=== PATIENT | female | born 1950 | race Caucasian/White ===

== ENCOUNTER 2019-12-18 17:40 | Inpatient (IN) ==
[2019-12-18] MEDS ORDERED: IOPAMIDOL 100 ML BOTTLE IV ONE (17:41)
[2019-12-18 18:11] LABS: POC Blood Urea Nitrogen 5 mg/dl (8-23); POC CO2 24 mmol/L (22-30); POC Calcium, Ionized 1.14 mmol/L (1.16-1.32); POC Chloride 98 mmol/L (96-108); POC Creatinine 0.5 mg/dl (0.6-1.1); POC Glucose, Random 146 mg/dL (70-105); POC Potassium 3.1 mmol/L (3.3-5.1); POC Sodium 134 mmol/L (133-145)
[2019-12-18] MEDS ORDERED: 0.9 % SODIUM CHLORIDE 1,000 ML IV ONE (18:17)
[2019-12-18 19:08] LABS: ALT/SGPT 27 U/l (0-40); AST/SGOT 44 U/l (0-37); Albumin 3.4 gm/dL (3.2-5.2); Albumin/Globulin Ratio 0.9 (1.0-2.3); Alkaline Phosphatase 114 U/L (39-117); Bilirubin,Total 0.4 mg/dL (0.0-1.0); Calcium 9.1 mg/dl (8.6-10.4); Globulin 3.9 gm/dL (2.2-3.7); Glomerular Filtration Rate 92; Glucose 141 mg/dL (70-105)
[2019-12-18 19:10] LABS: Blood Urea Nitrogen 5 mg/dl (8-23); Carbon Dioxide 21 mmol/L (22-30); Chloride 95 mmol/L (96-108)
[2019-12-18 19:50] LABS: Basophils # (Auto) 0.02 K/mcL (0.00-0.30); Basophils % (Auto) 0.3 % (0.0-2.0); Eosinophils # (Auto) 0.04 K/mcL (0.00-0.70); Eosinophils % (Auto) 0.6 % (0.0-7.0); Hematocrit 39.2 % (34.1-44.9); Hemoglobin 12.7 g/dL (11.2-15.7); Lymphocytes # (Auto) 0.97 K/mcL (1.50-4.80); Lymphocytes % (Auto) 15.3 % (15.5-49.0); Mean Corpuscular HGB Conc 32.4 g/dL (31.0-36.0); Mean Platelet Volume 8.9 fL (7.4-10.4); Monocytes # (Auto) 0.62 K/mcL (0.10-0.90); Monocytes % (Auto) 9.8 % (1.0-12.0); Platelet Count 354 K/mcL (140-440); RBC 4.78 M/mcL (3.59-5.38); Red Cell Distribution Width 15.1 % (11.5-14.5); WBC 6.3 K/mcL (4.50-11.00)
[2019-12-18 19:54] LABS: Appearance,Urine CLEAR; Bacteria,Urine 0 /hpf (0); Bilirubin,Urine NEG (NEG); Color,Urine YELLOW; Culture Indicated,Urine NO; Glucose,Urine (UA) NEGATIVE (NEG); Ketones,Urine 20 mg/dL (NEG); Leukocyte Esterase,Urine NEG /uL (NEG); Mucus,Urine FEW /hpf (0); Nitrate,Urine NEG (NEG); Protein,Urine NEG (NEG); Specific Gravity,Urine 1.013 (1.000-1.035); Urine Blood 0.03 mg/dL (<0.03); Urine Hyaline Cast 2 /lpf (0-2); Urine RBC 4 /hpf (0-1); Urine Squamous Epithelial Cell 0 /hpf (0-4); Urine WBC 4 /hpf (0-4); Urobilinogen,Urine NEG (NEG)
--- NOTE | 2019-12-18 20:29 | Emergency Department Note ---
Abdominal Pain HPI - General Chief Complaint: Abdominal Pain Stated Complaint: abdominal pain Time Seen by Provider: 12/18/19 18:02 Source: patient Mode of arrival: ambulatory Limitations: no limitations - History of Present Illness HPI Narrative: 69-year-old female presents with abdominal pain, distention, bloating, and diarrhea for 2 months. Is progressively getting worse. Very shaky. Just does not feel right. So weak that she cannot do much of anything. She had some labs drawn a few weeks ago and her potassium was low and they give her some potassium. Daughter states she continues to get worse. No nausea or vomiting. Describes the pain is mild and tolerable just something is not right. States she does not take anything for pain other than Tylenol on rare occasion. States a few weeks ago they also tested her stool for cultures and C. difficile etc. and it was all negative. States it is only gotten worse since then. She states she has no control over her bowels at all and has constant diarrhea multiple times a day. They are concerned because the urine a half ago this is how she presented when she had severe diverticulitis and they removed 22 inches of bowel however she states at that time she did have more pain than she does now. Also states that she is so weak and tired she is just sleeping all the time and has no energy. - Related Data Home Medications Medication Instructions Recorded Confirmed Aspirin [Adult Low Dose Aspirin EC] 81 mg PO DAILY 01/01/18 12/18/19 Calcium Carbonate [Calcium] 500 mg PO DAILY 01/01/18 12/18/19 Cholecalciferol (Vitamin D3) 1,000 unit PO DAILY 01/01/18 12/18/19 [Vitamin D] Fexofenadine HCl [Aller-Fex] 180 mg PO DAILYP PRN 01/01/18 12/18/19 Multivit-Min/FA/Lycopen/Lutein 1 tab PO DAILY 01/01/18 12/18/19 [Centrum Silver Tablet] Vitamin B Complex [Super B-50 1 cap PO DAILY 01/01/18 12/18/19 Complex] True Calm 1 cap PO DAILY 05/04/18 12/18/19 Previous Rx's Medication Instructions Recorded dicyclomine 20 mg tablet 20 mg PO TID #90 tab 11/18/19 hydrocortisone 2.5 % topical cream 1 applic TOPICAL TID PRN #30 g 11/18/19 paroxetine HCl 20 mg tablet 20 mg PO QDAY #30 tab 12/02/19 Allergies Allergy/AdvReac Type Severity Reaction Status Date / Time hydrocodone AdvReac Severe Hallucinati Verified 12/18/19 17:42 ng oxycodone [Oxycodone] AdvReac Severe Hallucinati Verified 12/18/19 17:42 ng Review of Systems All systems ED: reviewed and negative except as stated. Abdominal Pain PMH - Past Medical History [facility] Narrative: Medical History (Last Reviewed 12/02/19 @ 11:06 by Ursula Crespo MD) Menopausal syndrome (Chronic) Hypertension, essential (Chronic) Hyperlipidemia (Chronic) Allergic rhinitis due to allergen (Chronic) Allergic rhinitis due to pollen (Chronic) Abdominal pain (Acute) History of flexible sigmoidoscopy (Acute) Past Surgical History (Last Reviewed 12/02/19 @ 11:06 by Ursula Crespo MD) History of colectomy (Acute) No pertinent past surgical history (Inactive) - Social History Smoking status: Never smoker Alcohol use: Reports: None Drug use: Reports: none Physical Exam Limitations: no limitations General appearance: alert, other (Tremors present) Head: atraumatic, normocephalic, normal inspection Eye: Present: normal appearance. Absent: conjunctival injection ENT: Present: mucous membranes moist Chest: Present: symmetric chest wall rise Respiratory: Present: normal lung sounds bilaterally. Absent: respiratory distress, rales/crackles, wheezes, accessory muscle use Cardiovascular: Present: regular rate, normal heart sounds Abdominal: Present: soft, distention (Mild diffuse distention), normal bowel sounds. Absent: tenderness (Cannot reproduce tenderness with palpation), guarding, rebound, mass Neurological: Present: alert, oriented X3 Psychiatric: Present: normal affect, normal mood Skin: Present: warm, dry, intact Course Course Narrative: CT scan shows inflammation of the bowel and possible colitis. I did speak with Dr. Crespo at 2030 who would like me to put orders in on this patient and admit her to observation. He would also like this patient on n.p.o. other than liq uids, placed on her routine medications, also placed on Solu-Medrol 60 mg IV every 12 hours, and stool cultures and C. difficile and pathology orders placed. The plan will be to scope her probably tomorrow. Patient is agreeable. He does not want any antibiotics at this time until other labs come back. Vital Signs Temperature 97.8 F 12/18/19 17:40 Pulse Rate 105 H 12/18/19 17:40 Respiratory Rate 18 12/18/19 17:40 Blood Pressure 141/89 12/18/19 17:40 Pulse Oximetry (%) 98 12/18/19 17:40 Temperature 97.8 F 12/18/19 17:40 Pulse Rate 100 H 12/18/19 18:37 Respiratory Rate 20 12/18/19 18:37 Blood Pressure 152/93 12/18/19 18:37 Pulse Oximetry (%) 95 12/18/19 18:37 Abdominal Pain - Lab Data Lab results reviewed: Yes I reviewed the patient's lab results. Result diagrams: 12/18/19 17:52 12/18/19 17:52 Lab Results 12/18/19 12/18/19 12/18/19 Range/Units 17:52 17:52 17:52 WBC 6.3 (4.50-11.00) K/mcL RBC 4.78 (3.59-5.38) M/mcL Hgb 12.7 (11.2-15.7) g/dL Hct 39.2 (34.1-44.9) % POC Hct 41.0 (36.0-48.0) % MCV 82.0 (80.0-100.0) fL MCH 26.6 (26.0-34.0) pg MCHC 32.4 (31.0-36.0) g/dL RDW 15.1 H (11.5-14.5) % Plt Count 354 (140-440) K/mcL MPV 8.9 (7.4-10.4) fL Gran % 74.0 (38.0-78.0) % Lymph % (Auto) 15.3 L (15.5-49.0) % [place] % (Auto) 9.8 (1.0-12.0) % Eos % (Auto) 0.6 (0.0-7.0) % Baso % (Auto) 0.3 (0.0-2.0) % Gran # 4.69 (1.80-8.00) K/mcL Lymph # (Auto) 0.97 L (1.50-4.80) K/mcL [place] # (Auto) 0.62 (0.10-0.90) K/mcL Eos # (Auto) 0.04 (0.00-0.70) K/mcL Baso # (Auto) 0.02 (0.00-0.30) K/mcL POC Sodium 134 (133-145) mmol/L Sodium 133 (133-145) mmol/L POC Potassium 3.1 L (3.3-5.1) mmol/L Potassium 3.2 L (3.3-5.1) mmol/L POC Chloride 98 (96-108) mmol/L Chloride 95 L (96-108) mmol/L Carbon Dioxide 21 L (22-30) mmol/L POC Total CO2 24 (22-30) mmol/L Anion Gap 17.0 H (8-16) POC BUN 5 L (8-23) mg/dl BUN 5 L (8-23) mg/dl Creatinine 0.6 (0.6-1.1) mg/dl POC Creatinine 0.5 L (0.6-1.1) mg/dl GFR Calculation 92 Glucose 141 H (70-105) mg/dL POC Glucose 146 H (70-105) mg/dL Calcium 9.1 (8.6-10.4) mg/dl POC WB Ioniz Calcium 1.14 L (1.16-1.32) mmol/L Total Bilirubin 0.4 (0.0-1.0) mg/dL AST 44 H (0-37) U/l ALT 27 (0-40) U/l Alkaline Phosphatase 114 (39-117) U/L Total Protein 7.3 (5.9-8.4) gm/dL Albumin 3.4 (3.2-5.2) gm/dL Globulin 3.9 H (2.2-3.7) gm/dL Albumin/Globulin Ratio 0.9 L (1.0-2.3) Lipase 40 (7-60) U/L Urine Color Urine Appearance Urine pH (5.0-9.0) Ur Specific Blair (1.000-1.035) Urine Protein (NEG) mg/dL Urine Glucose (UA) (NEG) mg/dL Urine Ketones (NEG) mg/dL Urine Occult Blood (<0.03) mg/dL Urine Nitrate (NEG) Urine Bilirubin (NEG) mg/dL Urine Urobilinogen (NEG) mg/dL Ur Leukocyte Esterase (NEG) /uL Urine RBC (0-1) /hpf Urine WBC (0-4) /hpf Ur Squamous Epith Cells (0-4) /hpf Urine Bacteria (0) /hpf Hyaline Casts (0-2) /lpf Urine Mucus (0) /hpf Ur Culture Indicated? 12/18/19 Range/Units 18:30 WBC (4.50-11.00) K/mcL RBC (3.59-5.38) M/mcL Hgb (11.2-15.7) g/dL Hct (34.1-44.9) % POC Hct (36.0-48.0) % MCV (80.0-100.0) fL MCH (26.0-34.0) pg MCHC (31.0-36.0) g/dL RDW (11.5-14.5) % Plt Count (140-440) K/mcL MPV (7.4-10.4) fL Gran % (38.0-78.0) % Lymph % (Auto) (15.5-49.0) % [place] % (Auto) (1.0-12.0) % Eos % (Auto) (0.0-7.0) % Baso % (Auto) (0.0-2.0) % Gran # (1.80-8.00) K/mcL Lymph # (Auto) (1.50-4.80) K/mcL [place] # (Auto) (0.10-0.90) K/mcL Eos # (Auto) (0.00-0.70) K/mcL Baso # (Auto) (0.00-0.30) K/mcL POC Sodium (133-145) mmol/L Sodium (133-145) mmol/L POC Potassium (3.3-5.1) mmol/L Potassium (3.3-5.1) mmol/L POC Chloride (96-108) mmol/L Chloride (96-108) mmol/L Carbon Dioxide (22-30) mmol/L POC Total CO2 (22-30) mmol/L Anion Gap (8-16) POC BUN (8-23) mg/dl BUN (8-23) mg/dl Creatinine (0.6-1.1) mg/dl POC Creatinine (0.6-1.1) mg/dl GFR Calculation Glucose (70-105) mg/dL POC Glucose (70-105) mg/dL Calcium (8.6-10.4) mg/dl POC WB Ioniz Calcium (1.16-1.32) mmol/L Total Bilirubin (0.0-1.0) mg/dL AST (0-37) U/l ALT (0-40) U/l Alkaline Phosphatase (39-117) U/L Total Protein (5.9-8.4) gm/dL Albumin (3.2-5.2) gm/dL Globulin (2.2-3.7) gm/dL Albumin/Globulin Ratio (1.0-2.3) Lipase (7-60) U/L Urine Color Yellow Urine Appearance Clear Urine pH 6.0 (5.0-9.0) Ur Specific Blair 1.013 (1.000-1.035) Urine Protein Neg (NEG) mg/dL Urine Glucose (UA) Negative (NEG) mg/dL Urine Ketones 20 A (NEG) mg/dL Urine Occult Blood 0.03 A (<0.03) mg/dL Urine Nitrate Neg (NEG) Urine Bilirubin Neg (NEG) mg/dL Urine Urobilinogen Neg (NEG) mg/dL Ur Leukocyte Esterase Neg (NEG) /uL Urine RBC 4 H (0-1) /hpf Urine WBC 4 (0-4) /hpf Ur Squamous Epith Cells 0 (0-4) /hpf Urine Bacteria 0 (0) /hpf Hyaline Casts 2 (0-2) /lpf Urine Mucus Few (0) /hpf Ur Culture Indicated? No - Radiology Data Radiology results reviewed: Yes I reviewed the patient's radiology results. Disposition Pt seen by [employer] WORK[employer]/PA only: Yes Clinical Impression: Colitis Disposition: Xfer As Outpt/Obs ([facility]) Condition: Fair Referrals: Teddy Coleman MD [Primary Care Provider] - Time of Disposition: 20:30
[2019-12-18] MEDS ORDERED: ONDANSETRON 4 MG/2 ML VIAL IV PRN (20:34)
[2019-12-18] MEDS ORDERED: HYDROmorphone 1 MG/ML SYRINGE IV PRN (20:34)
[2019-12-18] MEDS ORDERED: ACETAMINOPHEN 650 MG/65 ML BOTTLE IV PRN (20:34)
[2019-12-18] MEDS ORDERED: POTASSIUM CHLORIDE 20 MEQ in DEXTROSE 5% IN WATER 250 ML IV ONE (20:36)
[2019-12-18] MEDS ORDERED: FEXOFENADINE 180 MG TABLET PO PRN (20:37)
[2019-12-18] MEDS ORDERED: POTASSIUM CHLORIDE 20 MEQ/10 ML VIAL IV ONE (21:20)
[2019-12-18] MEDS: 0.9 % SODIUM CHLORIDE 1,000 ML IV SCH (21:32)
[2019-12-18] MEDS: DICYCLOMINE 20 MG TABLET PO SCH (22:41)
[2019-12-18] MEDS: methylPREDNISolone SOD SUCC 40 MG/ML VIAL IV SCH (22:45)
[2019-12-19] MEDS: 0.9 % SODIUM CHLORIDE 1,000 ML IV SCH ×4 (07:03→23:49)
--- NOTE | 2019-12-19 07:50 | Cat Scan Report ---
History: Abdominal pain, diarrhea and prior partial colectomy for diverticulitis TECHNIQUE: The patient was imaged following intravenous but no oral contrast scanning during the portal venous phase and delayed excretory phase. Sagittal and coronal reformats were created. The radiation exposure was limited using dose reduction technology. FINDINGS: Small hiatus hernia is present. In the left lobe of the liver a 1.7 cm cyst is present. A smaller cyst is present in the right lobe. There is moderate dilatation of both intra and extrahepatic bile ducts. The gallbladder has been removed. Common bile duct measures up to 1.4 cm. The bile ducts have enlarged since the time the prior CT done on 05/19/18. At that time the common bile duct measured 8 mm. No stone or mass are seen in the distal common bile duct. The pancreas appears normal without evidence of a mass or inflammation. The spleen is normal in size and homogeneous. There is a 1.3 cm accessory spleen medial to the lower pole. The pancreas is normal. The adrenals are normal. There are couple simple cysts in both kidneys. The largest is located posteriorly in the left kidney and measures 2.1 cm. Mild hydronephrosis is present in the right kidney. However, the delayed images show symmetric excretion of contrast from both kidneys into the renal pelvis and ureters. There are no stones in either kidney. The right ureter is larger than the left but not abnormally dilated. No abnormality is seen at the ureterovesical junction. The urinary bladder is distended and appears normal without evidence of a mass or thickened wall. Moderate atherosclerotic disease is present throughout the aorta and iliac arteries. The aorta is normal in caliber. There is inflammation of the sigmoid colon with thickened sousa and stranding of surrounding fat. At the level of the greatest inflammation there are surgical sutures following the prior partial colectomy. There are relatively few diverticula in the region of the inflammation. In the proximal descending colon near the splenic flexure there is a region of relatively thickened colonic wall with no surrounding inflammation and no diverticula. This is nonspecific. No bowel obstruction is present. There are multiple nondilated fluid-filled loops of small intestine. The appendix is noninflamed. Uterus and ovaries are atrophic. No ascites or adenopathy are present. There is a ventral hernia in the midline of the lower pelvis containing a segment of nonobstructed small bowel. The hernia measures 2.5 x 6.6 cm. This has developed since the prior CT done on 05/19/18. IMPRESSION: Recurrent diverticulitis in the sigmoid colon without evidence of perforation or abscess Increasing dilatation of the intra and extrahepatic bile ducts. This could be a reservoir effect following a prior cholecystectomy or a stricture at the ampulla Mild hydronephrosis in the right kidney with no obstructing lesion identified Ventral hernia in the pelvis containing small bowel Nonspecific narrowing of the lumen of the proximal descending colon which could be muscular contraction, inflammation and less likely neoplasm. Interpreted and Authenticated by: Wilmer Donato 12/19/19
[2019-12-19] MEDS: ASPIRIN 81 MG TAB.CHEW CHEWED SCH (09:50)
[2019-12-19] MEDS: DICYCLOMINE 20 MG TABLET PO SCH ×3 (09:51→21:23)
[2019-12-19] MEDS: VITAMIN D3 1,000 UNIT TABLET PO SCH (09:51)
[2019-12-19] MEDS: CALCIUM CARBONATE 500 MG TAB.CHEW CHEWED SCH (09:51)
[2019-12-19] MEDS: VITAMIN B COMPLEX 1 CAPSULE PO SCH (09:51)
[2019-12-19] MEDS: MULTIVITAMINS,THERAPEUTIC 1 ML ORAL.SOL PO SCH (09:51)
[2019-12-19] MEDS: methylPREDNISolone SOD SUCC 40 MG/ML VIAL IV SCH ×2 (10:39→21:23)
[2019-12-19] MEDS: PARoxetine 20 MG TABLET PO SCH (10:39)
[2019-12-19] MEDS: PIPERACILLIN SODIUM/TAZOBACTAM 3.375 GM in DEXTROSE 5% IN WATER 50 ML IV SCH ×3 (10:40→23:47)
--- NOTE | 2019-12-19 15:58 | General Surg History&Physical ---
History of Present Illness Patient information: Note initiated : 12/19/19 at 3:53 pm Service Date, if different from initiated Date: [] Patient: Jesusita Jeffers 69 y/o F admitted on 12/18/19 for abdominal pain. Chief Complaint: [] HPI: Ms. Jeffers is a 69 year old F admitted with uncontrolled diarrhea weakness fatigue and weight loss. The patient states that she has a two-month history of intermittent diarrhea. She has 10-12 diarrheal bowel movements per day. This is been increasing over the past 9 days. She denies any nausea or pain. She denies any fever or chills. She has lost her appetite. Her fecal leukocytes were positive but C. difficile was negative. Stool for pathogenic bacteria has not returned as yet. CT shows inflammation in the region of her previous sigmoid resection with the symptom mostly mucosal changes. She also has another area in the descending colon. Her white blood count is 6.3, hemoglobin 12.7, hematocrit 39.2, potassium 3.1, BUN 5, creatinine 0.5, sedimentation rate 72. Review of Systems - Constitutional fatigue, lethargy, malaise, weakness, weight loss - EENT Nose, mouth and throat: dizziness - Cardiovascular no chest pain, no dyspnea, no edema, no palpatations, no syncope - Respiratory no cough, no dyspnea on exertion, no wheezing, no chest congestion - Gastrointestinal bloating, change in bowel habits, change in stool character, cramping, diarrhea, fecal incontinence, loose stools, vomiting, no nausea - Genitourinary Genitourinary: no nocturia - Musculoskeletal no arthralgias, no back pain, no muscle cramps, no numbness, no stiffness - Integumentary no new lesions, no pruritus, no rash - Neurological weakness, no abnormal gait, no confusion, no headache(s), no syncope, no tremor(s) - Psychiatric anxiety, depression - Endocrine fatigue, no palpitations - Hematologic/Lymphatic as per HPI (is related), no easy bleeding, no easy bruising, no lymphadenopathy ( to sedimentation rate are) - Allergic/Immunologic no tongue swelling, no throat swelling, no uticaria, no wheezing, no lip swelling ( exited the gallbladder is going down) Past History Past medical history: Prior history of diverticulitis Essential hypertension Past surgical history: Segmental colectomy for diverticulitis 2017 Past family history: Coronary artery disease Hypertension Diabetes mellitus Parkinson's disease Breast cancer Past social history: Employed never smoker Medications and Allergies Home Medications Medication Instructions Recorded Confirmed Type Aspirin [Adult Low Dose Aspirin EC] 81 mg PO DAILY 01/01/18 12/18/19 History Cholecalciferol (Vitamin D3) 1,000 unit PO DAILY 01/01/18 12/18/19 History [Vitamin D] Multivit-Min/FA/Lycopen/Lutein 1 tab PO DAILY 01/01/18 12/18/19 History [Centrum Silver Tablet] Vitamin B Complex [Super B-50 1 cap PO DAILY 01/01/18 12/18/19 History Complex] True Calm 1 cap PO DAILY 05/04/18 12/18/19 History hydrocortisone 2.5 % topical cream 1 applic TOPICAL TID PRN #30 g 11/18/19 12/18/19 Rx paroxetine HCl 20 mg tablet 20 mg PO QDAY #30 tab 12/02/19 12/18/19 Rx Allergies Allergy/AdvReac Type Severity Reaction Status Date / Time hydrocodone AdvReac Mild Hallucinati Verified 12/19/19 09:55 ng hydromorphone AdvReac Mild Hallucinati Verified 12/19/19 09:55 ng oxycodone [Oxycodone] AdvReac Mild Hallucinati Verified 12/19/19 09:55 ng Exam Temp Pulse Resp BP Pulse Ox 98.1 F 79 12 138/84 95 12/19/19 12:00 12/19/19 12:00 12/19/19 12:00 12/19/19 12:00 12/19/19 12:00 - General physical appearance well developed, well nourished, no distress, no pain - Eyes PERRL, normal ocular movement - ENT normal pinna, normal nares, normal mucosa, no hearing loss, no congestion - Head Head exam IM: Present: atraumatic, normocephalic - Neck no masses, no bruits, trachea midline, no lymphadenopathy, no venous distension - Cardiovascular Cardiovascular exam IM: Present: normal rate and rhythm - Respiratory normal expansion, normal respiratory effort, clear to auscultation - Abdomen Abdomen: Present: soft, non tender (abdomen is nontender; she has active bowel sounds; there is no mass and no guarding), bowel sounds Hernia: Present: none - Genitourinary Present: normal external genitalia - Rectum Rectum: Present: normal sphincter tone, no tenderness, no masses, no bleeding, other (enlarged external hemorrhoid with healing fissure) - Integumentary Present: no rash, no growths, no abnormal pigmentation - Neurologic Present: normal coordination, normal sensation - Musculoskeletal Present: normal gait, normal posture - Psychiatric Present: oriented to time, oriented to person, oriented to place, speech is normal, memory intact Assessment and Plan (1) Acute on chronic colitis Wait for follow-up of stool cultures for pathogenic organisms Start Solu-Medrol every 6 12 hours Cover with Zosyn pending cultures Delay advancing diet Status: Acute (2) History of diverticulitis Clinically patient does not have evidence of recurrent diverticulitis Status: Acute Comment: Possible irritable bowel syndrome (3) Hypertension, essential Status: Chronic
[2019-12-19] MEDS ORDERED: HYDROCORTISONE CRM 2.5% TUBE 30GM TOPICAL PRN (16:17)
[2019-12-19] MEDS: HYDROCORTISONE CRM 2.5% TUBE 30GM TOPICAL PRN (23:50)
[2019-12-20] MEDS: PIPERACILLIN SODIUM/TAZOBACTAM 3.375 GM in DEXTROSE 5% IN WATER 50 ML IV SCH ×3 (05:54→18:19)
[2019-12-20] MEDS: HYDROCORTISONE CRM 2.5% TUBE 30GM TOPICAL PRN ×3 (05:55→21:40)
[2019-12-20] MEDS: 0.9 % SODIUM CHLORIDE 1,000 ML IV SCH ×2 (05:55→13:17)
[2019-12-20 06:51] LABS: Basophils # (Auto) 0.01 K/mcL (0.00-0.30); Basophils % (Auto) 0.2 % (0.0-2.0); Eosinophils # (Auto) 0 K/mcL (0.00-0.70); Eosinophils % (Auto) 0 % (0.0-7.0); Granulocytes % (Auto) 81.7 % (38.0-78.0); Hematocrit 35.8 % (34.1-44.9); Hemoglobin 11.4 g/dL (11.2-15.7); Lymphocytes # (Auto) 0.54 K/mcL (1.50-4.80); Lymphocytes % (Auto) 10.1 % (15.5-49.0); Mean Cell Volume 82.5 fL (80.0-100.0); Mean Corpuscular HGB Conc 31.8 g/dL (31.0-36.0); Mean Platelet Volume 8.8 fL (7.4-10.4); Monocytes # (Auto) 0.43 K/mcL (0.10-0.90); Platelet Count 332 K/mcL (140-440); RBC 4.34 M/mcL (3.59-5.38); Red Cell Distribution Width 15.2 % (11.5-14.5); WBC 5.4 K/mcL (4.50-11.00)
[2019-12-20 08:17] LABS: ALT/SGPT 15 U/l (0-40); AST/SGOT 12 U/l (0-37); Albumin 2.8 gm/dL (3.2-5.2); Albumin/Globulin Ratio 0.8 (1.0-2.3); Alkaline Phosphatase 77 U/L (39-117); Bilirubin,Direct < 0.2 mg/dL (0.0-0.3); Bilirubin,Total 0.3 mg/dL (0.0-1.0); Blood Urea Nitrogen 4 mg/dl (8-23); Calcium 8.2 mg/dl (8.6-10.4); Carbon Dioxide 22 mmol/L (22-30); Chloride 102 mmol/L (96-108); Globulin 3.3 gm/dL (2.2-3.7); Glomerular Filtration Rate 98; Glucose 137 mg/dL (70-105); Lactate Dehydrogenase 133 U/L (94-250); Phosphorous 2.5 mg/dL (2.7-4.5); Triglycerides 80 mg/dl (<150); Uric Acid 1.4 mg/dL (2.5-8.0)
[2019-12-20] MEDS: PARoxetine 20 MG TABLET PO SCH ×2 (09:27→09:31)
[2019-12-20] MEDS: DICYCLOMINE 20 MG TABLET PO SCH ×3 (09:27→21:40)
[2019-12-20] MEDS: methylPREDNISolone SOD SUCC 40 MG/ML VIAL IV SCH ×2 (09:27→21:39)
[2019-12-20] MEDS: ASPIRIN 81 MG TAB.CHEW CHEWED SCH (09:27)
[2019-12-20] MEDS: CALCIUM CARBONATE 500 MG TAB.CHEW CHEWED SCH (09:27)
[2019-12-20] MEDS: VITAMIN B COMPLEX 1 CAPSULE PO SCH (09:27)
[2019-12-20] MEDS: VITAMIN D3 1,000 UNIT TABLET PO SCH (09:27)
[2019-12-20] MEDS: MULTIVITAMINS,THERAPEUTIC 1 ML ORAL.SOL PO SCH (09:31)
[2019-12-20] MEDS: MAGNESIUM SULFATE 4 GM/100 ML BAG IV SCH ×2 (12:14→18:54)
--- NOTE | 2019-12-20 14:05 | General Surgery Progress Note ---
Subjective Patient reports: feels better, pain is less, tolerating liquids well, flatus, bowel movement, afebrile Narrative: Note initiated : 12/20/19 at 2:02 pm Service Date, if different from initiated Date: [] Patient: Jesusita Jeffers 69 y/o F admitted on 12/18/19 for abdominal pain. Chief Complaint: [Patient states that she feels better. She has been afebrile. She denies nausea. Her bowel movements are less frequent and more formed than on admission. White blood count 5.9, hemoglobin 11.4, hematocrit 35.8, se dimentation rate 72, potassium 2.9, BUN 4, creatinine 0.5, phosphorus 2.5, magnesium 1.6.] Objective Temp Pulse Resp BP Pulse Ox 97.8 F 69 16 139/85 96 12/20/19 11:39 12/20/19 11:39 12/20/19 11:39 12/20/19 11:39 12/20/19 11:39 - Additional Data Intake & Output - Last 24 hours: Intake & Output 12/18/19 12/19/19 12/20/19 12/21/19 05:59 05:59 05:59 05:59 Intake Total 2360 3825 100 Output Total 727 3251 900 Balance 1633 574 -800 Weight 130 lb 14.4 oz 132 lb 11.2 oz - General physical appearance well developed, well nourished, no distress, moderate pain - Eyes PERRL, normal ocular movement - ENT normal pinna, normal nares, normal mucosa, no hearing loss, no congestion - Neck no masses, no bruits, trachea midline, no lymphadenopathy, no venous distension - Respiratory normal expansion, normal respiratory effort, clear to auscultation - Cardiovascular Cardiovascular exam: Present: normal rate and rhythm, RRR, +S1, +S2 (IVs). Absent: JVD, tachycardia - Abdomen non tender (no tenderness noted), bowel sounds (present), surgical scars (none), masses (none) - Integumentary no rash, no growths, no abnormal pigmentation - Neurologic normal coordination, normal sensation - Musculoskeletal normal gait, normal posture - Psychiatric oriented to time, oriented to person, oriented to place, speech is normal, memory intact - Labs 12/20/19 05:20 12/20/19 05:20 Diabetes panel 12/20/19 Range/Units 05:20 Sodium 139 (133-145) mmol/L Potassium 2.9 L* (3.3-5.1) mmol/L Chloride 102 (96-108) mmol/L Carbon Dioxide 22 (22-30) mmol/L BUN 4 L (8-23) mg/dl Creatinine 0.5 L (0.6-1.1) mg/dl Glucose 137 H (70-105) mg/dL Calcium 8.2 L (8.6-10.4) mg/dl AST 12 (0-37) U/l ALT 15 (0-40) U/l Alkaline Phosphatase 77 (39-117) U/L Total Protein 6.1 (5.9-8.4) gm/dL Albumin 2.8 L (3.2-5.2) gm/dL Triglycerides 80 (<150) mg/dl Calcium panel 12/20/19 Range/Units 05:20 Calcium 8.2 L (8.6-10.4) mg/dl Phosphorus 2.5 L (2.7-4.5) mg/dL Albumin 2.8 L (3.2-5.2) gm/dL Pituitary panel 12/20/19 Range/Units 05:20 Sodium 139 (133-145) mmol/L Potassium 2.9 L* (3.3-5.1) mmol/L Chloride 102 (96-108) mmol/L Carbon Dioxide 22 (22-30) mmol/L BUN 4 L (8-23) mg/dl Creatinine 0.5 L (0.6-1.1) mg/dl Glucose 137 H (70-105) mg/dL Calcium 8.2 L (8.6-10.4) mg/dl Adrenal panel 12/20/19 Range/Units 05:20 Sodium 139 (133-145) mmol/L Potassium 2.9 L* (3.3-5.1) mmol/L Chloride 102 (96-108) mmol/L Carbon Dioxide 22 (22-30) mmol/L BUN 4 L (8-23) mg/dl Creatinine 0.5 L (0.6-1.1) mg/dl Glucose 137 H (70-105) mg/dL Calcium 8.2 L (8.6-10.4) mg/dl Total Bilirubin 0.3 (0.0-1.0) mg/dL AST 12 (0-37) U/l ALT 15 (0-40) U/l Alkaline Phosphatase 77 (39-117) U/L Total Protein 6.1 (5.9-8.4) gm/dL Albumin 2.8 L (3.2-5.2) gm/dL Assessment and Plan (1) Acute on chronic colitis Status: Acute Assessment and plan: Patient is clinically improved. Will continue on steroids and antibiotics. Diet will be advanced to full liquids Current Visit: Yes (2) History of diverticulitis Problem details: Possible irritable bowel syndrome Status: Acute Current Visit: No (3) Hypertension, essential Status: Chronic Current Visit: No - Time Spent With Patient Total time spent is greater than 50% in coordination of care (as documented) at patient's floor/unit and/or counseling patient:
[2019-12-20] MEDS: POTASSIUM PHOSPHATE 40 MEQ in DEXTROSE 5% IN WATER 500 ML IV SCH (14:14)
[2019-12-21] MEDS: PIPERACILLIN SODIUM/TAZOBACTAM 3.375 GM in DEXTROSE 5% IN WATER 50 ML IV SCH ×5 (00:06→23:44)
[2019-12-21] MEDS: POTASSIUM PHOSPHATE 40 MEQ in DEXTROSE 5% IN WATER 500 ML IV SCH ×3 (01:30→19:31)
[2019-12-21] MEDS: 0.9 % SODIUM CHLORIDE 1,000 ML IV SCH ×6 (01:30→23:53)
[2019-12-21 06:21] LABS: Basophils # (Auto) 0.01 K/mcL (0.00-0.30); Basophils % (Auto) 0.2 % (0.0-2.0); Eosinophils # (Auto) 0 K/mcL (0.00-0.70); Eosinophils % (Auto) 0 % (0.0-7.0); Granulocytes % (Auto) 79.7 % (38.0-78.0); Hematocrit 36.4 % (34.1-44.9); Hemoglobin 11.8 g/dL (11.2-15.7); Lymphocytes # (Auto) 0.48 K/mcL (1.50-4.80); Lymphocytes % (Auto) 11.5 % (15.5-49.0); Mean Cell Volume 80.7 fL (80.0-100.0); Mean Corpuscular HGB Conc 32.4 g/dL (31.0-36.0); Mean Platelet Volume 8.7 fL (7.4-10.4); Monocytes # (Auto) 0.36 K/mcL (0.10-0.90); Monocytes % (Auto) 8.6 % (1.0-12.0); Platelet Count 359 K/mcL (140-440); RBC 4.51 M/mcL (3.59-5.38); Red Cell Distribution Width 15.3 % (11.5-14.5); WBC 4.2 K/mcL (4.50-11.00)
[2019-12-21 06:56] LABS: ALT/SGPT 18 U/l (0-40); AST/SGOT 12 U/l (0-37); Albumin 2.8 gm/dL (3.2-5.2); Albumin/Globulin Ratio 0.8 (1.0-2.3); Alkaline Phosphatase 72 U/L (39-117); Bilirubin,Direct < 0.2 mg/dL (0.0-0.3); Bilirubin,Total 0.2 mg/dL (0.0-1.0); Calcium 7.9 mg/dl (8.6-10.4); Carbon Dioxide 25 mmol/L (22-30); Chloride 103 mmol/L (96-108); Globulin 3.7 gm/dL (2.2-3.7); Glomerular Filtration Rate 92; Glucose 147 mg/dL (70-105); Lactate Dehydrogenase 114 U/L (94-250); Phosphorous 2.5 mg/dL (2.7-4.5); Triglycerides 93 mg/dl (<150)
[2019-12-21 06:58] LABS: Blood Urea Nitrogen 2 mg/dl (8-23); Uric Acid 1.1 mg/dL (2.5-8.0)
[2019-12-21] MEDS: VITAMIN B COMPLEX 1 CAPSULE PO SCH (08:22)
[2019-12-21] MEDS: CALCIUM CARBONATE 500 MG TAB.CHEW CHEWED SCH (08:22)
[2019-12-21] MEDS: PARoxetine 20 MG TABLET PO SCH ×2 (08:22→08:23)
[2019-12-21] MEDS: methylPREDNISolone SOD SUCC 40 MG/ML VIAL IV SCH ×2 (08:22→20:27)
[2019-12-21] MEDS: MULTIVITAMINS,THERAPEUTIC 1 ML ORAL.SOL PO SCH (08:23)
[2019-12-21] MEDS: ASPIRIN 81 MG TAB.CHEW CHEWED SCH (08:23)
[2019-12-21] MEDS: DICYCLOMINE 20 MG TABLET PO SCH ×3 (08:23→20:28)
[2019-12-21] MEDS: HYDROCORTISONE CRM 2.5% TUBE 30GM TOPICAL PRN (08:23)
[2019-12-21] MEDS: VITAMIN D3 1,000 UNIT TABLET PO SCH (08:23)
--- NOTE | 2019-12-21 13:59 | General Surgery Progress Note ---
Subjective Patient reports: feels better, pain is less, tolerating liquids well, flatus, bowel movement, afebrile Narrative: Note initiated : 12/21/19 at 1:57 pm Service Date, if different from initiated Date: [] Patient: Jesusita Jeffers 69 y/o F admitted on 12/20/19 for abdominal pain. Chief Complaint: [Patient is feeling better. Her numbers of stool if significantly decrease. They are more formed. He denies nausea. She is having no discomfort. White blood count 10, hemoglobin 12.9, hematocrit 37.9, potassium 3.8, BUN 8, creatinine 0.7.] Objective Temp Pulse Resp BP Pulse Ox 99.1 F H 69 16 131/83 96 12/21/19 11:56 12/21/19 11:56 12/21/19 11:56 12/21/19 11:56 12/21/19 11:56 - Additional Data Intake & Output - Last 24 hours: Intake & Output 12/19/19 12/20/19 12/21/19 12/22/19 05:59 05:59 05:59 05:59 Intake Total 2360 3825 2434.0909 1290 Output Total 727 3251 3675 Balance 1633 574 -1240.9091 1290 Weight 130 lb 14.4 oz 132 lb 11.2 oz 133 lb 1.6 oz - General physical appearance well developed, well nourished, no distress - Eyes PERRL, normal ocular movement - ENT normal pinna, normal nares, normal mucosa, no hearing loss, no congestion - Neck no masses, no bruits, trachea midline, no lymphadenopathy, no venous distension - Respiratory normal expansion, normal respiratory effort, clear to auscultation - Cardiovascular Cardiovascular exam: Present: normal rate and rhythm, RRR, +S1, +S2. Absent: JVD, tachycardia - Abdomen non tender (patient no longer has abdominal tenderness), bowel sounds (present), surgical scars (none), masses (none) - Integumentary no rash, no growths, no abnormal pigmentation - Neurologic normal coordination, normal sensation - Musculoskeletal normal gait, normal posture - Psychiatric oriented to time, oriented to person, oriented to place, speech is normal, memory intact - Labs 12/21/19 05:25 12/21/19 05:25 Diabetes panel 12/21/19 Range/Units 05:25 Sodium 139 (133-145) mmol/L Potassium 3.0 L (3.3-5.1) mmol/L Chloride 103 (96-108) mmol/L Carbon Dioxide 25 (22-30) mmol/L BUN 2 L (8-23) mg/dl Creatinine 0.6 (0.6-1.1) mg/dl Glucose 147 H (70-105) mg/dL Calcium 7.9 L (8.6-10.4) mg/dl AST 12 (0-37) U/l ALT 18 (0-40) U/l Alkaline Phosphatase 72 (39-117) U/L Total Protein 6.5 (5.9-8.4) gm/dL Albumin 2.8 L (3.2-5.2) gm/dL Triglycerides 93 (<150) mg/dl Calcium panel 12/21/19 Range/Units 05:25 Calcium 7.9 L (8.6-10.4) mg/dl Phosphorus 2.5 L (2.7-4.5) mg/dL Albumin 2.8 L (3.2-5.2) gm/dL Pituitary panel 12/21/19 Range/Units 05:25 Sodium 139 (133-145) mmol/L Potassium 3.0 L (3.3-5.1) mmol/L Chloride 103 (96-108) mmol/L Carbon Dioxide 25 (22-30) mmol/L BUN 2 L (8-23) mg/dl Creatinine 0.6 (0.6-1.1) mg/dl Glucose 147 H (70-105) mg/dL Calcium 7.9 L (8.6-10.4) mg/dl Adrenal panel 12/21/19 Range/Units 05:25 Sodium 139 (133-145) mmol/L Potassium 3.0 L (3.3-5.1) mmol/L Chloride 103 (96-108) mmol/L Carbon Dioxide 25 (22-30) mmol/L BUN 2 L (8-23) mg/dl Creatinine 0.6 (0.6-1.1) mg/dl Glucose 147 H (70-105) mg/dL Calcium 7.9 L (8.6-10.4) mg/dl Total Bilirubin 0.2 (0.0-1.0) mg/dL AST 12 (0-37) U/l ALT 18 (0-40) U/l Alkaline Phosphatase 72 (39-117) U/L Total Protein 6.5 (5.9-8.4) gm/dL Albumin 2.8 L (3.2-5.2) gm/dL Assessment and Plan (1) Acute on chronic colitis Status: Acute Assessment and plan: Patient is clinically improved. Will continue on steroids and antibiotics. Diet will be advanced to full liquids Current Visit: Yes (2) History of diverticulitis Problem details: Possible irritable bowel syndrome Status: Acute Current Visit: No (3) Hypertension, essential Status: Chronic Current Visit: No - Time Spent With Patient Total time spent is greater than 50% in coordination of care (as documented) at patient's floor/unit and/or counseling patient:
[2019-12-22] MEDS: 0.9 % SODIUM CHLORIDE 1,000 ML IV SCH ×5 (05:41→21:21)
[2019-12-22] MEDS: PIPERACILLIN SODIUM/TAZOBACTAM 3.375 GM in DEXTROSE 5% IN WATER 50 ML IV SCH ×3 (05:42→17:08)
[2019-12-22 06:16] LABS: Basophils # (Auto) 0.02 K/mcL (0.00-0.30); Basophils % (Auto) 0.5 % (0.0-2.0); Eosinophils # (Auto) 0 K/mcL (0.00-0.70); Eosinophils % (Auto) 0 % (0.0-7.0); Granulocytes % (Auto) 80.7 % (38.0-78.0); Hematocrit 35.4 % (34.1-44.9); Hemoglobin 11.3 g/dL (11.2-15.7); Lymphocytes # (Auto) 0.48 K/mcL (1.50-4.80); Lymphocytes % (Auto) 11.7 % (15.5-49.0); Mean Cell Volume 81.4 fL (80.0-100.0); Mean Corpuscular HGB Conc 31.9 g/dL (31.0-36.0); Mean Platelet Volume 8.7 fL (7.4-10.4); Monocytes # (Auto) 0.29 K/mcL (0.10-0.90); Monocytes % (Auto) 7.1 % (1.0-12.0); Platelet Count 358 K/mcL (140-440); RBC 4.35 M/mcL (3.59-5.38); Red Cell Distribution Width 15.3 % (11.5-14.5); WBC 4.1 K/mcL (4.50-11.00)
[2019-12-22 06:35] LABS: ALT/SGPT 17 U/l (0-40); AST/SGOT 13 U/l (0-37); Albumin 2.9 gm/dL (3.2-5.2); Albumin/Globulin Ratio 0.9 (1.0-2.3); Alkaline Phosphatase 64 U/L (39-117); Bilirubin,Direct < 0.2 mg/dL (0.0-0.3); Bilirubin,Total 0.2 mg/dL (0.0-1.0); Blood Urea Nitrogen 2 mg/dl (8-23); Calcium 8.2 mg/dl (8.6-10.4); Carbon Dioxide 25 mmol/L (22-30); Chloride 104 mmol/L (96-108); Globulin 3.2 gm/dL (2.2-3.7); Glomerular Filtration Rate 98; Glucose 142 mg/dL (70-105); Lactate Dehydrogenase 148 U/L (94-250); Phosphorous 2.9 mg/dL (2.7-4.5); Triglycerides 105 mg/dl (<150)
[2019-12-22] MEDS: CALCIUM CARBONATE 500 MG TAB.CHEW CHEWED SCH (08:23)
[2019-12-22] MEDS: PARoxetine 20 MG TABLET PO SCH ×2 (08:23)
[2019-12-22] MEDS: ASPIRIN 81 MG TAB.CHEW CHEWED SCH (08:24)
[2019-12-22] MEDS: MULTIVITAMINS,THERAPEUTIC 1 ML ORAL.SOL PO SCH (08:24)
[2019-12-22] MEDS: methylPREDNISolone SOD SUCC 40 MG/ML VIAL IV SCH ×2 (08:24→21:00)
[2019-12-22] MEDS: VITAMIN B COMPLEX 1 CAPSULE PO SCH (08:24)
[2019-12-22] MEDS: DICYCLOMINE 20 MG TABLET PO SCH ×3 (08:24→21:00)
[2019-12-22] MEDS: VITAMIN D3 1,000 UNIT TABLET PO SCH (08:24)
--- NOTE | 2019-12-22 16:35 | General Surgery Progress Note ---
Subjective Patient reports: feels better, pain is less, tolerating liquids well, flatus, bowel movement, afebrile Narrative: Note initiated : 12/22/19 at 4:33 pm Service Date, if different from initiated Date: [] Patient: Jesusita Jeffers 69 y/o F admitted on 12/20/19 for abdominal pain. Chief Complaint: [patient is significantly improved. She is no longer having diarrhea. She denies abdominal pain. Stool cultures have been negative so far. White blood count 4.1, hemoglobin 11.3, hematocrit 35.4, potassium 3.8, BUN 2, creatinine 0.5.] Objective Temp Pulse Resp BP Pulse Ox 98.3 F 68 18 122/78 96 12/22/19 16:00 12/22/19 16:00 12/22/19 16:00 12/22/19 16:00 12/22/19 16:00 - Additional Data Intake & Output - Last 24 hours: Intake & Output 12/20/19 12/21/19 12/22/19 12/23/19 05:59 05:59 05:59 05:59 Intake Total 3825 2434.0909 3858.0909 2300 Output Total 3251 3675 1775 3401 Balance 574 -1240.9091 2083.0909 -1101 Weight 132 lb 11.2 oz 133 lb 1.6 oz 135 lb 9.6 oz - General physical appearance well developed, well nourished, no distress - Eyes PERRL, normal ocular movement - ENT normal pinna, normal nares, normal mucosa, no hearing loss, no congestion - Neck no masses, no bruits, trachea midline, no lymphadenopathy, no venous distension - Respiratory normal expansion, normal respiratory effort, clear to auscultation - Cardiovascular Cardiovascular exam: Present: normal rate and rhythm, RRR, +S1, +S2. Absent: JVD, tachycardia - Abdomen non tender, bowel sounds (present), surgical scars (none), masses (none) - Integumentary no rash, no growths, no abnormal pigmentation - Neurologic normal coordination, normal sensation - Musculoskeletal normal gait, normal posture - Psychiatric oriented to time, oriented to person, oriented to place, speech is normal, memory intact - Labs 12/22/19 04:56 12/22/19 04:56 Diabetes panel 12/22/19 Range/Units 04:56 Sodium 141 (133-145) mmol/L Potassium 3.8 (3.3-5.1) mmol/L Chloride 104 (96-108) mmol/L Carbon Dioxide 25 (22-30) mmol/L BUN 2 L (8-23) mg/dl Creatinine 0.5 L (0.6-1.1) mg/dl Glucose 142 H (70-105) mg/dL Calcium 8.2 L (8.6-10.4) mg/dl AST 13 (0-37) U/l ALT 17 (0-40) U/l Alkaline Phosphatase 64 (39-117) U/L Total Protein 6.1 (5.9-8.4) gm/dL Albumin 2.9 L (3.2-5.2) gm/dL Triglycerides 105 (<150) mg/dl Calcium panel 12/22/19 Range/Units 04:56 Calcium 8.2 L (8.6-10.4) mg/dl Phosphorus 2.9 (2.7-4.5) mg/dL Albumin 2.9 L (3.2-5.2) gm/dL Pituitary panel 12/22/19 Range/Units 04:56 Sodium 141 (133-145) mmol/L Potassium 3.8 (3.3-5.1) mmol/L Chloride 104 (96-108) mmol/L Carbon Dioxide 25 (22-30) mmol/L BUN 2 L (8-23) mg/dl Creatinine 0.5 L (0.6-1.1) mg/dl Glucose 142 H (70-105) mg/dL Calcium 8.2 L (8.6-10.4) mg/dl Adrenal panel 12/22/19 Range/Units 04:56 Sodium 141 (133-145) mmol/L Potassium 3.8 (3.3-5.1) mmol/L Chloride 104 (96-108) mmol/L Carbon Dioxide 25 (22-30) mmol/L BUN 2 L (8-23) mg/dl Creatinine 0.5 L (0.6-1.1) mg/dl Glucose 142 H (70-105) mg/dL Calcium 8.2 L (8.6-10.4) mg/dl Total Bilirubin 0.2 (0.0-1.0) mg/dL AST 13 (0-37) U/l ALT 17 (0-40) U/l Alkaline Phosphatase 64 (39-117) U/L Total Protein 6.1 (5.9-8.4) gm/dL Albumin 2.9 L (3.2-5.2) gm/dL Assessment and Plan (1) Acute on chronic colitis Status: Acute Assessment and plan: Patient is clinically improved. Will continue on steroids and antibiotics. Diet will be advanced to full liquids Current Visit: Yes (2) History of diverticulitis Problem details: Possible irritable bowel syndrome Status: Acute Current Visit: No (3) Hypertension, essential Status: Chronic Current Visit: No - Time Spent With Patient Total time spent is greater than 50% in coordination of care (as documented) at patient's floor/unit and/or counseling patient:
[2019-12-22] MEDS ORDERED: 0.9 % SODIUM CHLORIDE 250 ML IV SCH (22:00)
[2019-12-22 23:31] LABS: Hematocrit 35.7 % (34.1-44.9); Hemoglobin 11.5 g/dL (11.2-15.7)
[2019-12-23] MEDS: PIPERACILLIN SODIUM/TAZOBACTAM 3.375 GM in DEXTROSE 5% IN WATER 50 ML IV SCH ×4 (00:13→17:04)
[2019-12-23] MEDS: 0.9 % SODIUM CHLORIDE 1,000 ML IV SCH ×4 (05:14→20:59)
[2019-12-23 08:13] LABS: Hematocrit 36.4 % (34.1-44.9); Hemoglobin 11.6 g/dL (11.2-15.7)
[2019-12-23] MEDS: methylPREDNISolone SOD SUCC 40 MG/ML VIAL IV SCH ×2 (08:26→20:52)
[2019-12-23 08:30] LABS: ALT/SGPT 16 U/l (0-40); AST/SGOT 10 U/l (0-37); Albumin 2.7 gm/dL (3.2-5.2); Albumin/Globulin Ratio 0.9 (1.0-2.3); Alkaline Phosphatase 58 U/L (39-117); Bilirubin,Direct < 0.2 mg/dL (0.0-0.3); Bilirubin,Total 0.2 mg/dL (0.0-1.0); Calcium 8.1 mg/dl (8.6-10.4); Carbon Dioxide 23 mmol/L (22-30); Chloride 103 mmol/L (96-108); Globulin 3.1 gm/dL (2.2-3.7); Glomerular Filtration Rate 106; Glucose 151 mg/dL (70-105); Lactate Dehydrogenase 134 U/L (94-250); Phosphorous 2.5 mg/dL (2.7-4.5); Triglycerides 104 mg/dl (<150)
[2019-12-23 08:32] LABS: Blood Urea Nitrogen 3 mg/dl (8-23)
[2019-12-23] MEDS: PARoxetine 20 MG TABLET PO SCH ×2 (08:40→08:41)
[2019-12-23] MEDS: ASPIRIN 81 MG TAB.CHEW CHEWED SCH (08:40)
[2019-12-23] MEDS: DICYCLOMINE 20 MG TABLET PO SCH ×4 (08:40→20:52)
[2019-12-23] MEDS: MULTIVITAMINS,THERAPEUTIC 1 ML ORAL.SOL PO SCH (08:41)
[2019-12-23] MEDS: VITAMIN B COMPLEX 1 CAPSULE PO SCH (08:41)
[2019-12-23] MEDS: VITAMIN D3 1,000 UNIT TABLET PO SCH (08:41)
[2019-12-23] MEDS: CALCIUM CARBONATE 500 MG TAB.CHEW CHEWED SCH (08:41)
[2019-12-23] MEDS ORDERED: POTASSIUM PHOSPHATE 40 MEQ in DEXTROSE 5% IN WATER 500 ML IV ONE (10:41)
--- NOTE | 2019-12-23 14:54 | General Surgery Progress Note ---
Subjective Patient reports: feels better, pain is less, tolerating liquids well, flatus, diarrhea, blood in stool, afebrile Narrative: Note initiated : 12/23/19 at 2:50 pm Service Date, if different from initiated Date: [] Patient: Jesusita Jeffers 69 y/o F admitted on 12/20/19 for abdominal pain. Chief Complaint: [patient states that she feels better. She does not have abdominal discomfort. She did have some bloody bowel movements last evening when her hemoglobin has remained stable over 12 hours. Potassium 3.4 BUN 30 creatinine 0.4 phosphorus 2.5 C. difficile is negative] Objective Temp Pulse Resp BP Pulse Ox 97.7 F 67 18 138/83 95 12/23/19 12:00 12/23/19 12:00 12/23/19 12:00 12/23/19 12:00 12/23/19 07:00 - Additional Data Intake & Output - Last 24 hours: Intake & Output 12/21/19 12/22/19 12/23/19 12/24/19 05:59 05:59 05:59 05:59 Intake Total 2434.0909 3858.0909 4400 100 Output Total 3675 1775 6301 375 Balance -1240.9091 2083.0909 -1901 -275 Weight 133 lb 1.6 oz 135 lb 9.6 oz 133 lb 9.6 oz - General physical appearance well developed, well nourished, no distress - Eyes PERRL, normal ocular movement - ENT normal pinna, normal nares, normal mucosa, no hearing loss, no congestion - Neck no masses, no bruits, trachea midline, no lymphadenopathy, no venous distension - Respiratory normal expansion, normal respiratory effort, clear to auscultation - Cardiovascular Cardiovascular exam: Present: normal rate and rhythm, RRR, +S1, +S2. Absent: JVD, tachycardia - Abdomen non tender, bowel sounds (present), surgical scars (none), masses (none) - Integumentary no rash, no growths, no abnormal pigmentation - Neurologic normal coordination, normal sensation - Musculoskeletal normal gait, normal posture - Psychiatric oriented to time, oriented to person, oriented to place, speech is normal, memory intact - Labs 12/23/19 05:58 12/23/19 05:58 Diabetes panel 12/23/19 Range/Units 05:58 Sodium 138 (133-145) mmol/L Potassium 3.4 (3.3-5.1) mmol/L Chloride 103 (96-108) mmol/L Carbon Dioxide 23 (22-30) mmol/L BUN 3 L (8-23) mg/dl Creatinine 0.4 L (0.6-1.1) mg/dl Glucose 151 H (70-105) mg/dL Calcium 8.1 L (8.6-10.4) mg/dl AST 10 (0-37) U/l ALT 16 (0-40) U/l Alkaline Phosphatase 58 (39-117) U/L Total Protein 5.8 L (5.9-8.4) gm/dL Albumin 2.7 L (3.2-5.2) gm/dL Triglycerides 104 (<150) mg/dl Calcium panel 12/23/19 Range/Units 05:58 Calcium 8.1 L (8.6-10.4) mg/dl Phosphorus 2.5 L (2.7-4.5) mg/dL Albumin 2.7 L (3.2-5.2) gm/dL Pituitary panel 12/23/19 Range/Units 05:58 Sodium 138 (133-145) mmol/L Potassium 3.4 (3.3-5.1) mmol/L Chloride 103 (96-108) mmol/L Carbon Dioxide 23 (22-30) mmol/L BUN 3 L (8-23) mg/dl Creatinine 0.4 L (0.6-1.1) mg/dl Glucose 151 H (70-105) mg/dL Calcium 8.1 L (8.6-10.4) mg/dl Adrenal panel 12/23/19 Range/Units 05:58 Sodium 138 (133-145) mmol/L Potassium 3.4 (3.3-5.1) mmol/L Chloride 103 (96-108) mmol/L Carbon Dioxide 23 (22-30) mmol/L BUN 3 L (8-23) mg/dl Creatinine 0.4 L (0.6-1.1) mg/dl Glucose 151 H (70-105) mg/dL Calcium 8.1 L (8.6-10.4) mg/dl Total Bilirubin 0.2 (0.0-1.0) mg/dL AST 10 (0-37) U/l ALT 16 (0-40) U/l Alkaline Phosphatase 58 (39-117) U/L Total Protein 5.8 L (5.9-8.4) gm/dL Albumin 2.7 L (3.2-5.2) gm/dL Assessment and Plan (1) Acute on chronic colitis Status: Acute Assessment and plan: Patient is clinically improved. Will continue on steroids and antibiotics. Will delay colonoscopy to Monday Clear liquid diet until then Current Visit: Yes (2) History of diverticulitis Problem details: Possible irritable bowel syndrome Status: Acute Current Visit: No (3) Hypertension, essential Status: Chronic Current Visit: No - Time Spent With Patient Total time spent is greater than 50% in coordination of care (as documented) at patient's floor/unit and/or counseling patient:
[2019-12-24] MEDS: PIPERACILLIN SODIUM/TAZOBACTAM 3.375 GM in DEXTROSE 5% IN WATER 50 ML IV SCH ×4 (00:49→17:52)
[2019-12-24] MEDS: 0.9 % SODIUM CHLORIDE 1,000 ML IV SCH ×5 (03:52→18:06)
[2019-12-24 07:05] LABS: Basophils # (Auto) 0.03 K/mcL (0.00-0.30); Basophils % (Auto) 0.5 % (0.0-2.0); Eosinophils # (Auto) 0 K/mcL (0.00-0.70); Eosinophils % (Auto) 0 % (0.0-7.0); Granulocytes % (Auto) 83.7 % (38.0-78.0); Hematocrit 39.3 % (34.1-44.9); Hemoglobin 12.4 g/dL (11.2-15.7); Lymphocytes # (Auto) 0.64 K/mcL (1.50-4.80); Lymphocytes % (Auto) 11.1 % (15.5-49.0); Mean Cell Volume 83.3 fL (80.0-100.0); Mean Corpuscular HGB Conc 31.6 g/dL (31.0-36.0); Monocytes # (Auto) 0.27 K/mcL (0.10-0.90); Monocytes % (Auto) 4.7 % (1.0-12.0); Platelet Count 368 K/mcL (140-440); RBC 4.72 M/mcL (3.59-5.38); Red Cell Distribution Width 15.4 % (11.5-14.5); WBC 5.7 K/mcL (4.50-11.00)
[2019-12-24 07:33] LABS: ALT/SGPT 18 U/l (0-40); AST/SGOT 15 U/l (0-37); Albumin 2.9 gm/dL (3.2-5.2); Albumin/Globulin Ratio 0.9 (1.0-2.3); Alkaline Phosphatase 58 U/L (39-117); Bilirubin,Direct < 0.2 mg/dL (0.0-0.3); Bilirubin,Total 0.3 mg/dL (0.0-1.0); Blood Urea Nitrogen 6 mg/dl (8-23); Calcium 8.2 mg/dl (8.6-10.4); Carbon Dioxide 22 mmol/L (22-30); Chloride 102 mmol/L (96-108); Globulin 3.1 gm/dL (2.2-3.7); Glomerular Filtration Rate 98; Glucose 142 mg/dL (70-105); Lactate Dehydrogenase 195 U/L (94-250); Phosphorous 3.4 mg/dL (2.7-4.5); Triglycerides 140 mg/dl (<150); Uric Acid 1.2 mg/dL (2.5-8.0)
[2019-12-24] MEDS ORDERED: MAGNESIUM CITRATE 300 ML ORAL.SOL PO SCH (08:00)
[2019-12-24] MEDS: methylPREDNISolone SOD SUCC 40 MG/ML VIAL IV SCH ×2 (08:34→20:45)
[2019-12-24] MEDS: PARoxetine 20 MG TABLET PO SCH (08:38)
[2019-12-24] MEDS: DICYCLOMINE 20 MG TABLET PO SCH ×3 (08:38→20:44)
[2019-12-24] MEDS: ASPIRIN 81 MG TAB.CHEW CHEWED SCH (08:38)
[2019-12-24] MEDS: MULTIVITAMINS,THERAPEUTIC 1 ML ORAL.SOL PO SCH (08:39)
[2019-12-24] MEDS: CALCIUM CARBONATE 500 MG TAB.CHEW CHEWED SCH (08:39)
[2019-12-24] MEDS: VITAMIN B COMPLEX 1 CAPSULE PO SCH (08:39)
[2019-12-24] MEDS: VITAMIN D3 1,000 UNIT TABLET PO SCH (08:39)
[2019-12-24] MEDS ORDERED: PROPOFOL 200 MG/20 ML VIAL IV ONE (14:24)
--- NOTE | 2019-12-24 15:22 | Brief Operative Note ---
Date of procedure: 12/24/19 Pre-op diagnosis: lower gi hemorrhage Post-op diagnosis: other (diffuse colonic ulcerations;pancolonic) Procedure: colonoscopy with biopsies Grafts/Implants: No Anesthesia: other (general) Findings: diffuse punctate ulcerations of colon extending from rectum to cecum with skip areas; ulcers involve full thickness of mucosa Complications: none Surgeon: Ursula Crespo Specimens Removed/Pathology: other (colonic ulcers biopsies) Condition: stable Disposition: floor
[2019-12-24] MEDS ORDERED: FEXOFENADINE 180 MG TABLET PO PRN (15:42)
[2019-12-24] MEDS ORDERED: HYDROCORTISONE CRM 2.5% TUBE 30GM TOPICAL PRN (15:42)
[2019-12-24] MEDS ORDERED: ONDANSETRON 4 MG/2 ML VIAL IV PRN (15:42)
[2019-12-24] MEDS ORDERED: ACETAMINOPHEN 650 MG/65 ML BOTTLE IV PRN (15:42)
[2019-12-24] MEDS ORDERED: HYDROmorphone 1 MG/ML SYRINGE IV PRN (15:42)
[2019-12-24] MEDS: MESALAMINE 500 MG CAPSULE PO SCH ×2 (17:53→20:44)
[2019-12-25] MEDS: PIPERACILLIN SODIUM/TAZOBACTAM 3.375 GM in DEXTROSE 5% IN WATER 50 ML IV SCH ×5 (00:45→23:20)
[2019-12-25] MEDS: 0.9 % SODIUM CHLORIDE 1,000 ML IV SCH ×7 (01:45→23:19)
[2019-12-25 07:12] LABS: ALT/SGPT 17 U/l (0-40); AST/SGOT 12 U/l (0-37); Albumin 2.9 gm/dL (3.2-5.2); Alkaline Phosphatase 55 U/L (39-117); Bilirubin,Direct < 0.2 mg/dL (0.0-0.3); Bilirubin,Total 0.3 mg/dL (0.0-1.0); Blood Urea Nitrogen 6 mg/dl (8-23); Carbon Dioxide 23 mmol/L (22-30); Chloride 104 mmol/L (96-108); Globulin 2.8 gm/dL (2.2-3.7); Glomerular Filtration Rate 98; Glucose 133 mg/dL (70-105); Lactate Dehydrogenase 162 U/L (94-250); Phosphorous 2.9 mg/dL (2.7-4.5); Triglycerides 133 mg/dl (<150); Uric Acid 1.2 mg/dL (2.5-8.0)
[2019-12-25 07:45] LABS: Basophils # (Auto) 0.02 K/mcL (0.00-0.30); Basophils % (Auto) 0.3 % (0.0-2.0); Eosinophils # (Auto) 0 K/mcL (0.00-0.70); Eosinophils % (Auto) 0 % (0.0-7.0); Granulocytes % (Auto) 85.3 % (38.0-78.0); Hematocrit 36.3 % (34.1-44.9); Hemoglobin 11.8 g/dL (11.2-15.7); Lymphocytes % (Auto) 9.7 % (15.5-49.0); Mean Corpuscular HGB Conc 32.5 g/dL (31.0-36.0); Mean Platelet Volume 8.6 fL (7.4-10.4); Monocytes # (Auto) 0.29 K/mcL (0.10-0.90); Monocytes % (Auto) 4.7 % (1.0-12.0); Platelet Count 358 K/mcL (140-440); RBC 4.48 M/mcL (3.59-5.38); Red Cell Distribution Width 15.1 % (11.5-14.5); WBC 6.2 K/mcL (4.50-11.00)
[2019-12-25] MEDS: CALCIUM CARBONATE 500 MG TAB.CHEW CHEWED SCH (09:15)
[2019-12-25] MEDS: MULTIVIT,THER IRON,CA,FA & MIN 1 TABLET PO SCH (09:15)
[2019-12-25] MEDS: PARoxetine 20 MG TABLET PO SCH (09:17)
[2019-12-25] MEDS: DICYCLOMINE 20 MG TABLET PO SCH ×3 (09:19→21:06)
[2019-12-25] MEDS: VITAMIN D3 1,000 UNIT TABLET PO SCH (09:19)
[2019-12-25] MEDS: methylPREDNISolone SOD SUCC 40 MG/ML VIAL IV SCH ×2 (09:20→21:06)
[2019-12-25] MEDS: VITAMIN B COMPLEX 1 CAPSULE PO SCH (09:20)
[2019-12-25] MEDS: ASPIRIN 81 MG TAB.CHEW CHEWED SCH ×2 (09:27→11:52)
[2019-12-25] MEDS: MESALAMINE 500 MG CAPSULE PO SCH ×4 (09:33→21:05)
--- NOTE | 2019-12-25 15:49 | General Surgery Progress Note ---
Subjective Patient reports: feels better, pain is less, tolerating a regular diet, flatus, diarrhea, blood in stool, afebrile Narrative: Note initiated : 12/25/19 at 3:47 pm Service Date, if different from initiated Date: [] Patient: Jesusita Jeffers 69 y/o F admitted on 12/20/19 for abdominal pain. Chief Complaint: [patient is stable and improved. She does not have pain. She still has some leakage of bloody fluid per rectum which is not unanticipated. She is tolerating diet without difficulty. White blood count 6.2, hemoglobin 11.8, hematocrit 36.3, potassium 3.2, BUN 6, creatinine 0.5.] Objective Temp Pulse Resp BP Pulse Ox 98.4 F 75 20 137/82 97 12/25/19 11:59 12/25/19 11:59 12/25/19 11:59 12/25/19 11:59 12/25/19 11:59 - Additional Data Intake & Output - Last 24 hours: Intake & Output 12/23/19 12/24/19 12/25/19 12/26/19 05:59 05:59 05:59 05:59 Intake Total 4400 3660 2860 2050 Output Total 6301 4050 4375 850 Balance -1901 -390 -1515 1200 Weight 133 lb 9.6 oz 129 lb 12.8 oz 131 lb 12.8 oz - General physical appearance well developed, well nourished, no distress - Eyes PERRL, normal ocular movement - ENT normal pinna, normal nares, normal mucosa, no hearing loss, no congestion - Neck no masses, no bruits, trachea midline, no lymphadenopathy, no venous distension - Respiratory normal expansion, normal respiratory effort, clear to auscultation - Cardiovascular Cardiovascular exam: Present: normal rate and rhythm, RRR, +S1, +S2. Absent: JVD, tachycardia - Abdomen non tender (no tenderness to palpation), bowel sounds (present), surgical scars (none), masses (none) - Rectum other ( at 10 blood per rectum from rectal ulcers) - Integumentary no rash, no growths, no abnormal pigmentation - Neurologic normal coordination, normal sensation - Musculoskeletal normal gait, normal posture - Psychiatric oriented to time, oriented to person, oriented to place, speech is normal, memory intact - Labs 12/25/19 05:31 06/03/20 05:30 Diabetes panel 12/25/19 Range/Units 05:30 Sodium 138 (133-145) mmol/L Potassium 3.2 L (3.3-5.1) mmol/L Chloride 104 (96-108) mmol/L Carbon Dioxide 23 (22-30) mmol/L BUN 6 L (8-23) mg/dl Creatinine 0.5 L (0.6-1.1) mg/dl Glucose 133 H (70-105) mg/dL Calcium 8.0 L (8.6-10.4) mg/dl AST 12 (0-37) U/l ALT 17 (0-40) U/l Alkaline Phosphatase 55 (39-117) U/L Total Protein 5.7 L (5.9-8.4) gm/dL Albumin 2.9 L (3.2-5.2) gm/dL Triglycerides 133 (<150) mg/dl Calcium panel 12/25/19 Range/Units 05:30 Calcium 8.0 L (8.6-10.4) mg/dl Phosphorus 2.9 (2.7-4.5) mg/dL Albumin 2.9 L (3.2-5.2) gm/dL Pituitary panel 12/25/19 Range/Units 05:30 Sodium 138 (133-145) mmol/L Potassium 3.2 L (3.3-5.1) mmol/L Chloride 104 (96-108) mmol/L Carbon Dioxide 23 (22-30) mmol/L BUN 6 L (8-23) mg/dl Creatinine 0.5 L (0.6-1.1) mg/dl Glucose 133 H (70-105) mg/dL Calcium 8.0 L (8.6-10.4) mg/dl Adrenal panel 12/25/19 Range/Units 05:30 Sodium 138 (133-145) mmol/L Potassium 3.2 L (3.3-5.1) mmol/L Chloride 104 (96-108) mmol/L Carbon Dioxide 23 (22-30) mmol/L BUN 6 L (8-23) mg/dl Creatinine 0.5 L (0.6-1.1) mg/dl Glucose 133 H (70-105) mg/dL Calcium 8.0 L (8.6-10.4) mg/dl Total Bilirubin 0.3 (0.0-1.0) mg/dL AST 12 (0-37) U/l ALT 17 (0-40) U/l Alkaline Phosphatase 55 (39-117) U/L Total Protein 5.7 L (5.9-8.4) gm/dL Albumin 2.9 L (3.2-5.2) gm/dL Assessment and Plan (1) Acute on chronic colitis Status: Acute Assessment and plan: Patient is clinically improved. Will continue on steroids and antibiotics. Advanced to soft diet Current Visit: Yes (2) History of diverticulitis Problem details: Possible irritable bowel syndrome Status: Acute Current Visit: No (3) Hypertension, essential Status: Chronic Current Visit: No - Time Spent With Patient Total time spent is greater than 50% in coordination of care (as documented) at patient's floor/unit and/or counseling patient:
[2019-12-25] MEDS: POTASSIUM CHLORIDE 20 MEQ TABLET PO SCH (17:31)
[2019-12-26] MEDS: PIPERACILLIN SODIUM/TAZOBACTAM 3.375 GM in DEXTROSE 5% IN WATER 50 ML IV SCH ×4 (06:12→23:20)
[2019-12-26 07:04] LABS: Basophils # (Auto) 0.02 K/mcL (0.00-0.30); Basophils % (Auto) 0.3 % (0.0-2.0); Eosinophils # (Auto) 0 K/mcL (0.00-0.70); Eosinophils % (Auto) 0 % (0.0-7.0); Granulocytes % (Auto) 86.9 % (38.0-78.0); Hematocrit 30.6 % (34.1-44.9); Hemoglobin 8.8 g/dL (11.2-15.7); Lymphocytes % (Auto) 8.8 % (15.5-49.0); Mean Cell Volume 91.6 fL (80.0-100.0); Mean Corpuscular HGB Conc 28.8 g/dL (31.0-36.0); Mean Platelet Volume 8.7 fL (7.4-10.4); Monocytes # (Auto) 0.32 K/mcL (0.10-0.90); Platelet Count 309 K/mcL (140-440); RBC 3.34 M/mcL (3.59-5.38); Red Cell Distribution Width 15.9 % (11.5-14.5)
[2019-12-26] MEDS: 0.9 % SODIUM CHLORIDE 1,000 ML IV SCH ×3 (07:45→19:51)
[2019-12-26 07:46] LABS: Bilirubin,Direct < 0.2 mg/dL (0.0-0.3)
[2019-12-26 07:49] LABS: ALT/SGPT 15 U/l (0-40); AST/SGOT 13 U/l (0-37); Albumin 2.3 gm/dL (3.2-5.2); Albumin/Globulin Ratio 1.1 (1.0-2.3); Alkaline Phosphatase 37 U/L (39-117); Bilirubin,Total 0.2 mg/dL (0.0-1.0); Blood Urea Nitrogen 9 mg/dl (8-23); Calcium 7.5 mg/dl (8.6-10.4); Carbon Dioxide 18 mmol/L (22-30); Chloride 110 mmol/L (96-108); Globulin 2.1 gm/dL (2.2-3.7); Glomerular Filtration Rate 98; Glucose 142 mg/dL (70-105); Lactate Dehydrogenase 172 U/L (94-250); Phosphorous 2.3 mg/dL (2.7-4.5); Triglycerides 96 mg/dl (<150); Uric Acid 1.2 mg/dL (2.5-8.0)
[2019-12-26] MEDS: 0.9 % SODIUM CHLORIDE 250 ML IV SCH ×2 (09:21→09:22)
[2019-12-26] MEDS: POTASSIUM CHLORIDE 20 MEQ TABLET PO SCH ×2 (10:22→17:50)
[2019-12-26] MEDS: PARoxetine 20 MG TABLET PO SCH (10:23)
[2019-12-26] MEDS: VITAMIN D3 1,000 UNIT TABLET PO SCH (10:23)
[2019-12-26] MEDS: VITAMIN B COMPLEX 1 CAPSULE PO SCH (10:24)
[2019-12-26] MEDS: DICYCLOMINE 20 MG TABLET PO SCH ×3 (10:24→20:24)
[2019-12-26] MEDS: CALCIUM CARBONATE 500 MG TAB.CHEW CHEWED SCH (10:24)
[2019-12-26] MEDS: MULTIVIT,THER IRON,CA,FA & MIN 1 TABLET PO SCH (10:25)
[2019-12-26] MEDS: ASPIRIN 81 MG TAB.CHEW CHEWED SCH (10:25)
[2019-12-26] MEDS: methylPREDNISolone SOD SUCC 40 MG/ML VIAL IV SCH ×2 (10:27→20:26)
[2019-12-26] MEDS: MESALAMINE 500 MG CAPSULE PO SCH ×4 (10:53→20:26)
--- NOTE | 2019-12-26 12:11 | Surgical Pathology Report ---
HISTOLOGY SPECIMEN MICROSCOPIC DIAGNOSIS SPECIMEN A - COLON, ASCENDING, ULCER, BIOPSY: -- COLONIC MUCOSA WITH FOCAL SURFACE EROSION AND ACUTE AND CHRONIC INFLAMMATION; SEE COMMENT. -- NO GRANULOMAS, MICROSCOPIC COLITIS, DYSPLASIA OR MALIGNANCY IDENTIFIED. SPECIMEN B - COLON, SIGMOID AT 30 cm, ULCER, BIOPSY: -- ERODED COLONIC MUCOSA WITH ASSOCIATED ACUTE AND CHRONIC INFLAMMATION; SEE COMMENT. -- NO GRANULOMAS, MICROSCOPIC COLITIS, DYSPLASIA OR MALIGNANCY IDENTIFIED. (DMT:sln) COMMENT: The patient's history of acute colitis involving the sigmoid and rectum ([id number]; 07/07/2016) and without chronic architectural changes is noted. The current biopsies show colonic mucosa with patchy surface erosions and associated acute and chronic inflammation. Background chronic architectural changes (expanded lamina propria by a lymphoplasmacytic chronic inflammatory infiltrate and crypt distortion/branching) are not seen. No acute cryptitis, crypt abscesses, granulomas or dysplasia are identified. The findings are not etiologically specific and may be seen in the setting of acute self-limited (infectious) colitis, nonsteroidal anti-inflammatory drug use, diverticular disease associated colitis or inflammatory bowel disease. Clinical and endoscopic correlation are necessary. CLINICAL HISTORY Lower GI hemorrhage. PROCEDURAL IMPRESSION Diffuse colonic ulcerations; pancolonic. GROSS DESCRIPTION Specimen A: Received in formalin labeled ascending colon ulcer, are two fragments of sandhu-eubanks tissue 0.3 and 0.5 cm. Totally submitted - one cassette. Specimen B: Received in formalin labeled sigmoid colon biopsy ulcer, are two fragments of sandhu-eubanks tissue 0.3 and 0.4 cm. Totally submitted - one cassette. (KGW:sln) Electronically Signed by: Murtaza Rodriguez M.D.
--- NOTE | 2019-12-26 16:47 | General Surgery Progress Note ---
Subjective Patient reports: blood in stool, afebrile Narrative: Note initiated : 12/26/19 at 4:44 pm Service Date, if different from initiated Date: [] Patient: Jesusita Jeffers 69 y/o F admitted on 12/20/19 for abdominal pain. Chief Complaint: [Patient had no bleeding. Had small clots mixed with stool. Her morning hemoglobin was 8.8 and she felt weak. She was transfused 2 units of packed red cells and feels better at this time. The amount of bleeding has improved significantly. She denies having abdominal pain and she denies nausea.] , White blood count 8, hemoglobin 8.8, hematocrit 30.6, potassium 3.8, phosph orus 2.3. Objective Temp Pulse Resp BP Pulse Ox 97.9 F 64 14 92/58 97 12/26/19 13:10 12/26/19 13:10 12/26/19 13:10 12/26/19 13:10 12/26/19 13:10 - Additional Data Intake & Output - Last 24 hours: Intake & Output 12/24/19 12/25/19 12/26/19 12/27/19 05:59 05:59 05:59 05:59 Intake Total 3660 2860 5600 1425 Output Total 4050 4375 3600 Balance -390 -1515 2000 1425 Weight 129 lb 12.8 oz 131 lb 12.8 oz 130 lb 3.2 oz 130 lb 3.2 oz - General physical appearance other (patient states that she feels weak but she is not having any abdominal pain) - Eyes PERRL, normal ocular movement - ENT normal pinna, normal nares, normal mucosa, no hearing loss, no congestion - Neck no masses, no bruits, trachea midline, no lymphadenopathy, no venous distension - Respiratory normal expansion, normal respiratory effort, clear to auscultation - Cardiovascular Cardiovascular exam: Present: normal rate and rhythm, RRR, +S1, +S2. Absent: JVD, tachycardia - Abdomen non tender, bowel sounds (present), surgical scars (none), masses (none) - Integumentary no rash, no growths, no abnormal pigmentation - Neurologic normal coordination, normal sensation - Musculoskeletal normal gait, normal posture - Psychiatric oriented to time, oriented to person, oriented to place, speech is normal, memory intact - Labs 12/26/19 06:07 12/26/19 06:06 Diabetes panel 12/26/19 Range/Units 06:06 Sodium 138 (133-145) mmol/L Potassium 3.8 (3.3-5.1) mmol/L Chloride 110 H (96-108) mmol/L Carbon Dioxide 18 L (22-30) mmol/L BUN 9 (8-23) mg/dl Creatinine 0.5 L (0.6-1.1) mg/dl Glucose 142 H (70-105) mg/dL Calcium 7.5 L (8.6-10.4) mg/dl AST 13 (0-37) U/l ALT 15 (0-40) U/l Alkaline Phosphatase 37 L (39-117) U/L Total Protein 4.4 L (5.9-8.4) gm/dL Albumin 2.3 L (3.2-5.2) gm/dL Triglycerides 96 (<150) mg/dl Calcium panel 12/26/19 Range/Units 06:06 Calcium 7.5 L (8.6-10.4) mg/dl Phosphorus 2.3 L (2.7-4.5) mg/dL Albumin 2.3 L (3.2-5.2) gm/dL Pituitary panel 12/26/19 Range/Units 06:06 Sodium 138 (133-145) mmol/L Potassium 3.8 (3.3-5.1) mmol/L Chloride 110 H (96-108) mmol/L Carbon Dioxide 18 L (22-30) mmol/L BUN 9 (8-23) mg/dl Creatinine 0.5 L (0.6-1.1) mg/dl Glucose 142 H (70-105) mg/dL Calcium 7.5 L (8.6-10.4) mg/dl Adrenal panel 12/26/19 Range/Units 06:06 Sodium 138 (133-145) mmol/L Potassium 3.8 (3.3-5.1) mmol/L Chloride 110 H (96-108) mmol/L Carbon Dioxide 18 L (22-30) mmol/L BUN 9 (8-23) mg/dl Creatinine 0.5 L (0.6-1.1) mg/dl Glucose 142 H (70-105) mg/dL Calcium 7.5 L (8.6-10.4) mg/dl Total Bilirubin 0.2 (0.0-1.0) mg/dL AST 13 (0-37) U/l ALT 15 (0-40) U/l Alkaline Phosphatase 37 L (39-117) U/L Total Protein 4.4 L (5.9-8.4) gm/dL Albumin 2.3 L (3.2-5.2) gm/dL Assessment and Plan (1) Acute on chronic colitis Status: Acute Assessment and plan: Patient is clinically improved. Will continue on steroids and antibiotics If bleeding continues we'll proceed with colonoscopy epinephrine flush of the entire colon. Need to check results of pathology of which has not been posted so far. Current Visit: Yes (2) History of diverticulitis Problem details: Possible irritable bowel syndrome Status: Acute Current Visit: No (3) Hypertension, essential Status: Chronic Current Visit: No - Time Spent With Patient Total time spent is greater than 50% in coordination of care (as documented) at patient's floor/unit and/or counseling patient:
[2019-12-27] MEDS: 0.9 % SODIUM CHLORIDE 1,000 ML IV SCH ×3 (02:57→18:09)
[2019-12-27] MEDS: PIPERACILLIN SODIUM/TAZOBACTAM 3.375 GM in DEXTROSE 5% IN WATER 50 ML IV SCH ×4 (06:06→23:22)
[2019-12-27 07:56] LABS: Basophils # (Auto) 0.02 K/mcL (0.00-0.30); Basophils % (Auto) 0.2 % (0.0-2.0); Eosinophils # (Auto) 0 K/mcL (0.00-0.70); Eosinophils % (Auto) 0 % (0.0-7.0); Granulocytes % (Auto) 88.5 % (38.0-78.0); Hematocrit 30.1 % (34.1-44.9); Lymphocytes # (Auto) 0.84 K/mcL (1.50-4.80); Lymphocytes % (Auto) 7.5 % (15.5-49.0); Mean Corpuscular HGB Conc 33.2 g/dL (31.0-36.0); Mean Platelet Volume 9.2 fL (7.4-10.4); Monocytes # (Auto) 0.43 K/mcL (0.10-0.90); Monocytes % (Auto) 3.8 % (1.0-12.0); Platelet Count 234 K/mcL (140-440); Red Cell Distribution Width 15.7 % (11.5-14.5); WBC 11.3 K/mcL (4.50-11.00)
[2019-12-27 08:06] LABS: ALT/SGPT 13 U/l (0-40); AST/SGOT 10 U/l (0-37); Albumin 2.6 gm/dL (3.2-5.2); Albumin/Globulin Ratio 1.5 (1.0-2.3); Alkaline Phosphatase 35 U/L (39-117); Bilirubin,Direct < 0.2 mg/dL (0.0-0.3); Bilirubin,Total 0.6 mg/dL (0.0-1.0); Blood Urea Nitrogen 10 mg/dl (8-23); Calcium 7.5 mg/dl (8.6-10.4); Carbon Dioxide 20 mmol/L (22-30); Chloride 106 mmol/L (96-108); Globulin 1.7 gm/dL (2.2-3.7); Glomerular Filtration Rate 98; Glucose 126 mg/dL (70-105); Lactate Dehydrogenase 141 U/L (94-250); Triglycerides 144 mg/dl (<150); Uric Acid 1.2 mg/dL (2.5-8.0)
[2019-12-27 08:07] LABS: Phosphorous 2.2 mg/dL (2.7-4.5)
[2019-12-27] MEDS: PARoxetine 20 MG TABLET PO SCH (08:57)
[2019-12-27] MEDS: DICYCLOMINE 20 MG TABLET PO SCH ×3 (08:57→20:08)
[2019-12-27] MEDS: MULTIVIT,THER IRON,CA,FA & MIN 1 TABLET PO SCH (08:57)
[2019-12-27] MEDS: VITAMIN D3 1,000 UNIT TABLET PO SCH (08:57)
[2019-12-27] MEDS: ASPIRIN 81 MG TAB.CHEW CHEWED SCH (08:58)
[2019-12-27] MEDS: POTASSIUM CHLORIDE 20 MEQ TABLET PO SCH ×2 (08:59→18:00)
[2019-12-27] MEDS: VITAMIN B COMPLEX 1 CAPSULE PO SCH (09:00)
[2019-12-27] MEDS: CALCIUM CARBONATE 500 MG TAB.CHEW CHEWED SCH (09:00)
[2019-12-27] MEDS: MESALAMINE 500 MG CAPSULE PO SCH ×4 (09:02→20:08)
[2019-12-27] MEDS: methylPREDNISolone SOD SUCC 40 MG/ML VIAL IV SCH ×2 (09:03→22:51)
--- NOTE | 2019-12-27 14:03 | General Surgery Progress Note ---
Subjective Patient reports: feels better, pain is less, flatus, bowel movement, diarrhea, afebrile Narrative: Note initiated : 12/27/19 at 2:01 pm Service Date, if different from initiated Date: [] Patient: Jesusita Jeffers 69 y/o F admitted on 12/20/19 for abdominal pain. Chief Complaint: [patient states that she feels better. She does not have any abdominal pain. The bloody diarrhea significantly improved and she no longer has clots. White blood count 11.3, hemoglobin 10, hematocrit 30.1, phosphorus 2.2.] Objective Temp Pulse Resp BP Pulse Ox 99.1 F H 60 16 134/72 98 12/27/19 12:00 12/27/19 12:00 12/27/19 12:00 12/27/19 12:00 12/27/19 09:45 - Additional Data Intake & Output - Last 24 hours: Intake & Output 12/25/19 12/26/19 12/27/19 12/28/19 05:59 05:59 05:59 05:59 Intake Total 2860 5600 5724 1050 Output Total 4375 3600 1975 1635 Balance -1515 2000 9505 -850 Weight 131 lb 12.8 oz 130 lb 3.2 oz 134 lb - General physical appearance well developed, well nourished, no distress - Eyes PERRL, normal ocular movement - ENT normal pinna, normal nares, normal mucosa, no hearing loss, no congestion - Neck no masses, no bruits, trachea midline, no lymphadenopathy, no venous distension - Respiratory normal expansion, normal respiratory effort, clear to auscultation - Cardiovascular Cardiovascular exam: Present: normal rate and rhythm, RRR, +S1, +S2. Absent: bradycardia, tachycardia - Abdomen non tender, bowel sounds (present), surgical scars (none), masses (none) - Integumentary no rash, no growths, no abnormal pigmentation - Neurologic normal coordination, normal sensation - Musculoskeletal normal gait, normal posture - Psychiatric oriented to time, oriented to person, oriented to place, speech is normal, memory intact - Labs 12/27/19 05:58 12/27/19 05:58 Diabetes panel 12/27/19 Range/Units 05:58 Sodium 134 (133-145) mmol/L Potassium 4.6 (3.3-5.1) mmol/L Chloride 106 (96-108) mmol/L Carbon Dioxide 20 L (22-30) mmol/L BUN 10 (8-23) mg/dl Creatinine 0.5 L (0.6-1.1) mg/dl Glucose 126 H (70-105) mg/dL Calcium 7.5 L (8.6-10.4) mg/dl AST 10 (0-37) U/l ALT 13 (0-40) U/l Alkaline Phosphatase 35 L (39-117) U/L Total Protein 4.3 L (5.9-8.4) gm/dL Albumin 2.6 L (3.2-5.2) gm/dL Triglycerides 144 (<150) mg/dl Calcium panel 12/27/19 Range/Units 05:58 Calcium 7.5 L (8.6-10.4) mg/dl Phosphorus 2.2 L (2.7-4.5) mg/dL Albumin 2.6 L (3.2-5.2) gm/dL Pituitary panel 12/27/19 Range/Units 05:58 Sodium 134 (133-145) mmol/L Potassium 4.6 (3.3-5.1) mmol/L Chloride 106 (96-108) mmol/L Carbon Dioxide 20 L (22-30) mmol/L BUN 10 (8-23) mg/dl Creatinine 0.5 L (0.6-1.1) mg/dl Glucose 126 H (70-105) mg/dL Calcium 7.5 L (8.6-10.4) mg/dl Adrenal panel 12/27/19 Range/Units 05:58 Sodium 134 (133-145) mmol/L Potassium 4.6 (3.3-5.1) mmol/L Chloride 106 (96-108) mmol/L Carbon Dioxide 20 L (22-30) mmol/L BUN 10 (8-23) mg/dl Creatinine 0.5 L (0.6-1.1) mg/dl Glucose 126 H (70-105) mg/dL Calcium 7.5 L (8.6-10.4) mg/dl Total Bilirubin 0.6 (0.0-1.0) mg/dL AST 10 (0-37) U/l ALT 13 (0-40) U/l Alkaline Phosphatase 35 L (39-117) U/L Total Protein 4.3 L (5.9-8.4) gm/dL Albumin 2.6 L (3.2-5.2) gm/dL Assessment and Plan (1) Acute on chronic colitis Status: Acute Assessment and plan: Patient is clinically improved. Will continue on steroids and antibiotics Advanced to regular diet Current Visit: Yes (2) History of diverticulitis Problem details: Possible irritable bowel syndrome Status: Acute Current Visit: No (3) Hypertension, essential Status: Chronic Current Visit: No - Time Spent With Patient Total time spent is greater than 50% in coordination of care (as documented) at patient's floor/unit and/or counseling patient:
[2019-12-28] MEDS: 0.9 % SODIUM CHLORIDE 1,000 ML IV SCH ×5 (00:35→18:50)
[2019-12-28] MEDS: PIPERACILLIN SODIUM/TAZOBACTAM 3.375 GM in DEXTROSE 5% IN WATER 50 ML IV SCH ×4 (05:28→23:41)
[2019-12-28] MEDS: VITAMIN B COMPLEX 1 CAPSULE PO SCH (08:24)
[2019-12-28] MEDS: VITAMIN D3 1,000 UNIT TABLET PO SCH (08:24)
[2019-12-28] MEDS: PARoxetine 20 MG TABLET PO SCH (08:24)
[2019-12-28] MEDS: MULTIVIT,THER IRON,CA,FA & MIN 1 TABLET PO SCH (08:24)
[2019-12-28] MEDS: POTASSIUM CHLORIDE 20 MEQ TABLET PO SCH ×2 (08:24→17:29)
[2019-12-28] MEDS: CALCIUM CARBONATE 500 MG TAB.CHEW CHEWED SCH (08:24)
[2019-12-28] MEDS: ASPIRIN 81 MG TAB.CHEW CHEWED SCH (08:25)
[2019-12-28] MEDS: DICYCLOMINE 20 MG TABLET PO SCH ×3 (08:25→20:25)
[2019-12-28] MEDS: MESALAMINE 500 MG CAPSULE PO SCH ×4 (08:25→20:25)
[2019-12-28] MEDS: methylPREDNISolone SOD SUCC 40 MG/ML VIAL IV SCH ×2 (08:26→20:24)
--- NOTE | 2019-12-28 13:47 | General Surgery Progress Note ---
Subjective Patient reports: feels better, pain is less, tolerating a regular diet, flatus, bowel movement, diarrhea, afebrile Narrative: Note initiated : 12/28/19 at 1:45 pm Service Date, if different from initiated Date: [] Patient: Jesusita Jeffers 69 y/o F admitted on 12/20/19 for abdominal pain. Chief Complaint: [patient feels much better. She has not had any bloody bowel movements. She has tolerated full liquids without difficulty. Her a.m. labs were not drawn but have been ordered.] Objective Temp Pulse Resp BP Pulse Ox 98.4 F 70 16 114/72 97 12/28/19 12:00 12/28/19 12:00 12/28/19 12:00 12/28/19 12:00 12/28/19 12:00 - Additional Data Intake & Output - Last 24 hours: Intake & Output 12/26/19 12/27/19 12/28/19 12/29/19 05:59 05:59 05:59 05:59 Intake Total 5600 5724 3900 1100 Output Total 3600 1975 4570 Balance 2000 3749 -670 1100 Weight 130 lb 3.2 oz 134 lb 130 lb 8 oz - General physical appearance well developed, well nourished, no distress - Eyes PERRL, normal ocular movement - ENT normal pinna, normal nares, normal mucosa, no hearing loss, no congestion - Neck no masses, no bruits, trachea midline, no lymphadenopathy, no venous distension - Respiratory normal expansion, normal respiratory effort, clear to auscultation - Cardiovascular Cardiovascular exam: Present: normal rate and rhythm, RRR, +S1, +S2. Absent: JVD, tachycardia - Abdomen non tender (no tenderness or distention; good active bowel sounds), bowel sounds (present), surgical scars (none), masses (none) - Integumentary no rash, no growths, no abnormal pigmentation - Neurologic normal coordination, normal sensation - Musculoskeletal normal gait, normal posture - Psychiatric oriented to time, oriented to person, oriented to place, speech is normal, memory intact - Labs 12/27/19 05:58 12/27/19 05:58 Assessment and Plan (1) Acute on chronic colitis Status: Acute Assessment and plan: Patient is clinically improved. Will continue on steroids and antibiotics Advanced to regular diet Current Visit: Yes (2) History of diverticulitis Problem details: Possible irritable bowel syndrome Status: Acute Current Visit: No (3) Hypertension, essential Status: Chronic Current Visit: No - Time Spent With Patient Total time spent is greater than 50% in coordination of care (as documented) at patient's floor/unit and/or counseling patient:
[2019-12-28 13:54] LABS: Basophils # (Auto) 0.01 K/mcL (0.00-0.30); Basophils % (Auto) 0.1 % (0.0-2.0); Eosinophils # (Auto) 0 K/mcL (0.00-0.70); Eosinophils % (Auto) 0 % (0.0-7.0); Hematocrit 29.1 % (34.1-44.9); Lymphocytes # (Auto) 0.57 K/mcL (1.50-4.80); Mean Cell Volume 87.4 fL (80.0-100.0); Mean Corpuscular HGB Conc 34.4 g/dL (31.0-36.0); Mean Platelet Volume 9.1 fL (7.4-10.4); Monocytes # (Auto) 0.33 K/mcL (0.10-0.90); Monocytes % (Auto) 2.9 % (1.0-12.0); Platelet Count 249 K/mcL (140-440); RBC 3.33 M/mcL (3.59-5.38); Red Cell Distribution Width 17.1 % (11.5-14.5); WBC 11.3 K/mcL (4.50-11.00)
[2019-12-29] MEDS: 0.9 % SODIUM CHLORIDE 1,000 ML IV SCH ×2 (01:54→08:46)
[2019-12-29] MEDS: PIPERACILLIN SODIUM/TAZOBACTAM 3.375 GM in DEXTROSE 5% IN WATER 50 ML IV SCH ×2 (05:33→12:52)
[2019-12-29 07:18] LABS: Basophils # (Auto) 0.02 K/mcL (0.00-0.30); Basophils % (Auto) 0.2 % (0.0-2.0); Eosinophils # (Auto) 0 K/mcL (0.00-0.70); Eosinophils % (Auto) 0 % (0.0-7.0); Granulocytes % (Auto) 90.7 % (38.0-78.0); Hematocrit 30.3 % (34.1-44.9); Hemoglobin 9.6 g/dL (11.2-15.7); Lymphocytes # (Auto) 0.68 K/mcL (1.50-4.80); Lymphocytes % (Auto) 5.9 % (15.5-49.0); Mean Cell Volume 92.9 fL (80.0-100.0); Mean Corpuscular HGB Conc 31.7 g/dL (31.0-36.0); Mean Platelet Volume 9.2 fL (7.4-10.4); Monocytes # (Auto) 0.37 K/mcL (0.10-0.90); Monocytes % (Auto) 3.2 % (1.0-12.0); Platelet Count 231 K/mcL (140-440); RBC 3.26 M/mcL (3.59-5.38); Red Cell Distribution Width 17.5 % (11.5-14.5); WBC 11.6 K/mcL (4.50-11.00)
[2019-12-29] MEDS: POTASSIUM CHLORIDE 20 MEQ TABLET PO SCH (08:08)
[2019-12-29] MEDS: VITAMIN D3 1,000 UNIT TABLET PO SCH (08:08)
[2019-12-29] MEDS: MULTIVIT,THER IRON,CA,FA & MIN 1 TABLET PO SCH (08:08)
[2019-12-29] MEDS: PARoxetine 20 MG TABLET PO SCH (08:08)
[2019-12-29] MEDS: DICYCLOMINE 20 MG TABLET PO SCH ×2 (08:08→15:12)
[2019-12-29] MEDS: VITAMIN B COMPLEX 1 CAPSULE PO SCH (08:08)
[2019-12-29] MEDS: CALCIUM CARBONATE 500 MG TAB.CHEW CHEWED SCH (08:09)
[2019-12-29] MEDS: MESALAMINE 500 MG CAPSULE PO SCH ×2 (08:09→12:53)
[2019-12-29] MEDS: ASPIRIN 81 MG TAB.CHEW CHEWED SCH (08:09)
[2019-12-29] MEDS: methylPREDNISolone SOD SUCC 40 MG/ML VIAL IV SCH (08:09)
--- NOTE | 2019-12-29 13:25 | Discharge Summary ---
Providers - Providers Patient information: Note initiated : 12/29/19 at 1:21 pm Service Date, if different from initiated Date: [] Patient: Jesusita Jeffers 69 y/o F admitted on 12/20/19 for abdominal pain. Chief Complaint: [] Date of admission: 01/18/20 Discharge date: 12/29/19 Attending physician: Ursula Crespo Hospitalization Hospital Course: 69-year-old female admitted with uncontrolled diarrhea weakness fatigue and weight loss. She has a two-month history of intermittent diarrhea with 10-12 bowel movements per day. She had fecal leukocytes checked which were positive but C. difficile was negative. Stool for pathogenic bacteria was also negative. CT scan showed inflammation in the region of her previous sigmoid resection with some mucosal changes. White count was normal as was hemoglobin and hematocrit. Examination reveals a nontender abdomen. She did have enlarged external hemorrhoids with fissure. Patient was admitted and started on Solu- Medrol every 6 hours and was covered with Zosyn pending cultures. All of her cultures returned negative. Patient started having bloody bowel movements on 1.. She was evaluated by colonoscopy on and was found to have diffuse pancolonic ulceration with some skip areas. Pathology on biopsy showed acute and chronic mucosal inflammation with ulceration. Mesalamine was added to her treatment regimen. She had to be transfused 2 units of packed cells but has remained stable. She had a small amount of bleeding yesterday but her hemoglobin is 9.6. Her bowel movements are primarily brown with specks of blood. She is clinically stable and will be discharged home on oral medications with plans for follow-up weekly to check her hemoglobin and repeat colonoscopy in 3 weeks. Discharge diagnosis: acute colonic ulcerations Secondary discharge diagnosis: Hemorrhage due to colonic ulcerations Blood loss anemia Hypertension Reason for admission: uncontrolled diarrhea weight loss and fatigue Procedures: Colonoscopy with biopsies on to December 2019 Pertinent studies/significant findings: None Exam Temp Pulse Resp BP Pulse Ox 98.9 F 70 18 118/72 97 12/29/19 12:12/29/19 12:12/29/19 12:12/29/19 12:12/29/19 12:00 - General physical appearance well developed, well nourished, no distress - Eyes PERRL, normal ocular movement - ENT normal pinna, normal nares, normal mucosa, no hearing loss, no congestion - Head Head exam IM: Present: atraumatic, normocephalic - Neck no masses, no bruits, trachea midline, no lymphadenopathy, no venous distension - Cardiovascular Cardiovascular exam IM: Present: normal rate and rhythm - Respiratory normal expansion, normal respiratory effort, clear to percussion, clear to auscultation - Abdomen Abdomen: Present: soft, non tender, bowel sounds Hernia: Present: none - Genitourinary Present: normal external genitalia - Integumentary Present: no rash, no growths, no abnormal pigmentation - Neurologic Present: normal coordination, normal sensation - Musculoskeletal Present: normal gait, normal posture - Psychiatric Present: oriented to time, oriented to person, oriented to place, speech is normal, memory intact Discharge Plan - Patient/Caregiver Discharge Instructions Activity: increase activity as tolerated Diet: Regular Diet Prescriptions: Mesalamine [Pentasa] 1,000 mg PO QID #100 cap Transmission Status: Pending to [facility] predniSONE [Prednisone] 20 mg PO BID #60 tab Transmission Status: Pending to [facility] - Follow up Plan Follow up with: Ursula Crespo MD [Physician] - 01/06/20 10:45 am Teddy Coleman MD [Primary Care Provider] - Disposition: Home, Self-Care Prognosis: Good Rehab Potential: Good I certify that the patient requires SNF services.: No Overall status at discharge: patient is progressing back to baseline Pending Studies Resuscitation Status Full Code Diet Regular Diet Start Sat Fareed 6 1248 Aspirin (Aspirin) 81 mg CHEWED DAILY [facility] Last Admin: 12/29/19 08:09 Dose: 81 mg Documented by: Admin: 12/28/19 08:25 Dose: 81 mg Documented by: Admin: 12/27/19 08:58 Dose: 81 mg Documented by: Admin: 12/26/19 10:25 Dose: Not Given Documented by: Admin: 12/25/19 11:52 Dose: 81 mg Documented by: LILIANE Calcium Carbonate/Glycine (Tums) 500 mg CHEWED DAILY [facility] Last Admin: 12/29/19 08:09 Dose: 500 mg Documented by: Admin: 12/28/19 08:24 Dose: 500 mg Documented by: Admin: 12/27/19 09:00 Dose: 500 mg Documented by: Admin: 12/26/19 10:24 Dose: 500 mg Documented by: Admin: 12/25/19 09:15 Dose: 500 mg Documented by: LILIANE Dicyclomine HCl (Dicyclomine) 20 mg PO TID [facility] Admin: 12/29/19 08:08 Dose: 20 mg Documented by: Admin: 12/28/19 20:25 Dose: 20 mg Documented by: Admin: 12/28/19 15:07 Dose: 20 mg Documented by: Admin: 12/28/19 08:25 Dose: 20 mg Documented by: Admin: 12/27/19 20:08 Dose: 20 mg Documented by: Admin: 12/27/19 15:42 Dose: 20 mg Documented by: Admin: 12/27/19 08:57 Dose: 20 mg Documented by: Admin: 12/26/19 20:24 Dose: 20 mg Documented by: Admin: 12/26/19 14:40 Dose: 20 mg Documented by: Admin: 12/26/19 10:24 Dose: 20 mg Documented by: Admin: 12/25/19 21:06 Dose: 20 mg Documented by: Admin: 12/25/19 14:28 Dose: 20 mg Documented by: Admin: 12/25/19 09:19 Dose: 20 mg Documented by: Admin: 12/24/19 20:44 Dose: 20 mg Documented by: QUENTIN Sodium Chloride (Sodium Chloride 0.9%) 1,000 mls @ 150 mls/hr IV .[id number] [facility] Admin: 12/29/19 08:46 Dose: 150 mls/hr Documented by: Infusion: 12/29/19 08:35 Dose: 150 mls/hr Documented by: Admin: 12/29/19 01:54 Dose: 150 mls/hr Documented by: Infusion: 12/29/19 01:31 Dose: 150 mls/hr Documented by: Admin: 12/28/19 18:50 Dose: 150 mls/hr Documented by: Infusion: 12/28/19 18:30 Dose: 150 mls/hr Documented by: Admin: 12/28/19 11:49 Dose: 150 mls/hr Documented by: Infusion: 12/28/19 10:41 Dose: 150 mls/hr Documented by: Admin: 12/28/19 05:34 Dose: Not Given Documented by: Admin: 12/28/19 04:00 Dose: 150 mls/hr Documented by: Infusion: 12/28/19 00:50 Dose: 150 mls/hr Documented by: Admin: 12/28/19 00:35 Dose: Not Given Documented by: Admin: 12/27/19 18:09 Dose: 150 mls/hr Documented by: Infusion: 12/27/19 16:55 Dose: 0 mls/hr Documented by: Admin: 12/27/19 10:05 Dose: 150 mls/hr Documented by: Infusion: 12/27/19 09:38 Dose: 150 mls/hr Documented by: Admin: 12/27/19 02:57 Dose: 150 mls/hr Documented by: Infusion: 12/27/19 02:32 Dose: 150 mls/hr Documented by: Admin: 12/26/19 19:51 Dose: 150 mls/hr Documented by: Admin: 12/26/19 14:40 Dose: Not Given Documented by: Infusion: 12/26/19 14:26 Dose: 150 mls/hr Documented by: Admin: 12/26/19 07:45 Dose: 150 mls/hr Documented by: Infusion: 12/26/19 06:00 Dose: 150 mls/hr Documented by: Admin: 12/25/19 23:19 Dose: 150 mls/hr Documented by: Infusion: 12/25/19 23:16 Dose: 150 mls/hr Documented by: Admin: 12/25/19 17:47 Dose: Not Given Documented by: Admin: 12/25/19 16:35 Dose: 150 mls/hr Documented by: Infusion: 12/25/19 15:21 Dose: 0 mls/hr Documented by: Admin: 12/25/19 10:52 Dose: Not Given Documented by: Admin: 12/25/19 08:43 Dose: Not Given Documented by: Admin: 12/25/19 08:40 Dose: 150 mls/hr Documented by: Infusion: 12/25/19 08:26 Dose: 150 mls/hr Documented by: Admin: 12/25/19 01:45 Dose: 150 mls/hr Documented by: Infusion: 12/25/19 00:47 Dose: 150 mls/hr Documented by: Admin: 12/24/19 18:06 Dose: 150 mls/hr Documented by: LILIANE Piperacillin Sod/Tazobactam (Sod 3.375 gm/ Dextrose) 50 mls @ 100 mls/hr IV Q6H [facility]; Protocol Last Admin: 12/29/19 12:52 Dose: 100 mls/hr Documented by: Infusion: 12/29/19 06:03 Dose: 0 mls/hr Documented by: Admin: 12/29/19 05:33 Dose: 100 mls/hr Documented by: Infusion: 12/29/19 00:11 Dose: 100 mls/hr Documented by: Admin: 12/28/19 23:41 Dose: 100 mls/hr Documented by: Infusion: 12/28/19 17:59 Dose: 100 mls/hr Documented by: Admin: 12/28/19 17:29 Dose: 100 mls/hr Documented by: Infusion: 12/28/19 12:40 Dose: 0 mls/hr Documented by: Admin: 12/28/19 11:49 Dose: 100 mls/hr Documented by: Infusion: 12/28/19 06:00 Dose: 0 mls/hr Documented by: Admin: 12/28/19 05:28 Dose: 100 mls/hr Documented by: Infusion: 12/27/19 23:52 Dose: 100 mls/hr Documented by: Admin: 12/27/19 23:22 Dose: 100 mls/hr Documented by: Infusion: 12/27/19 18:41 Dose: 100 mls/hr Documented by: Admin: 12/27/19 18:11 Dose: 100 mls/hr Documented by: Infusion: 12/27/19 13:10 Dose: 0 mls/hr Documented by: Admin: 12/27/19 12:33 Dose: 100 mls/hr Documented by: Infusion: 12/27/19 06:45 Dose: 0 mls/hr Documented by: Admin: 12/27/19 06:06 Dose: 100 mls/hr Documented by: Infusion: 12/26/19 23:50 Dose: 100 mls/hr Documented by: Admin: 12/26/19 23:20 Dose: 100 mls/hr Documented by: Infusion: 12/26/19 18:21 Dose: 100 mls/hr Documented by: Admin: 12/26/19 17:51 Dose: 100 mls/hr Documented by: Infusion: 12/26/19 12:50 Dose: 0 mls/hr Documented by: Admin: 12/26/19 12:15 Dose: 100 mls/hr Documented by: Infusion: 12/26/19 07:00 Dose: 0 mls/hr Documented by: Admin: 12/26/19 06:12 Dose: 100 mls/hr Documented by: Infusion: 12/25/19 23:50 Dose: 100 mls/hr Documented by: Admin: 12/25/19 23:20 Dose: 100 mls/hr Documented by: Infusion: 12/25/19 18:01 Dose: 100 mls/hr Documented by: Admin: 12/25/19 17:31 Dose: 100 mls/hr Documented by: Infusion: 12/25/19 16:53 Dose: 0 mls/hr Documented by: Admin: 12/25/19 11:54 Dose: 100 mls/hr Documented by: Infusion: 12/25/19 06:36 Dose: 0 mls/hr Documented by: Admin: 12/25/19 06:06 Dose: 100 mls/hr Documented by: [email or web address] Infusion: 12/25/19 01:15 Dose: 100 mls/hr Documented by: Admin: 12/25/19 00:45 Dose: 100 mls/hr Documented by: Infusion: 12/24/19 18:22 Dose: 100 mls/hr Documented by: Admin: 12/24/19 17:52 Dose: 100 mls/hr Documented by: LILIANE Iron Carb/Multivit/[employer]/Folic Acid (Multivitamin W/Minerals) 1 tab PO DAILY [facility] Admin: 12/29/19 08:08 Dose: 1 tab Documented by: Admin: 12/28/19 08:24 Dose: 1 tab Documented by: Admin: 12/27/19 08:57 Dose: 1 tab Documented by: Admin: 12/26/19 10:25 Dose: 1 tab Documented by: Admin: 12/25/19 09:15 Dose: 1 tab Documented by: LILIANE Mesalamine (Pentasa) 1,000 mg PO QID [facility] Admin: 12/29/19 12:53 Dose: 1,000 mg Documented by: Admin: 12/29/19 08:09 Dose: 1,000 mg Documented by: Admin: 12/28/19 20:25 Dose: 1,000 mg Documented by: Admin: 12/28/19 17:29 Dose: 1,000 mg Documented by: Admin: 12/28/19 12:48 Dose: 1,000 mg Documented by: Admin: 12/28/19 08:25 Dose: 1,000 mg Documented by: Admin: 12/27/19 20:08 Dose: 1,000 mg Documented by: Admin: 12/27/19 17:59 Dose: 1,000 mg Documented by: Admin: 12/27/19 13:36 Dose: 1,000 mg Documented by: Admin: 12/27/19 09:02 Dose: 1,000 mg Documented by: Admin: 12/26/19 20:26 Dose: 1,000 mg Documented by: Admin: 12/26/19 17:51 Dose: 1,000 mg Documented by: Admin: 12/26/19 13:38 Dose: 1,000 mg Documented by: Admin: 12/26/19 10:53 Dose: 1,000 mg Documented by: Admin: 12/25/19 21:05 Dose: 1,000 mg Documented by: Admin: 12/25/19 17:31 Dose: 1,000 mg Documented by: Admin: 12/25/19 12:54 Dose: 1,000 mg Documented by: Admin: 12/25/19 09:33 Dose: 1,000 mg Documented by: Admin: 12/24/19 20:44 Dose: 1,000 mg Documented by: Admin: 12/24/19 17:53 Dose: 1,000 mg Documented by: LILIANE Methylprednisolone Sodium Succinate (Solu-Medrol) 60 mg IV Q12 [facility] Last Admin: 12/29/19 08:09 Dose: 60 mg Documented by: Admin: 12/28/19 20:24 Dose: 60 mg Documented by: Admin: 12/28/19 08:26 Dose: 60 mg Documented by: Admin: 12/27/19 22:51 Dose: 60 mg Documented by: Admin: 12/27/19 09:03 Dose: 60 mg Documented by: Admin: 12/26/19 20:26 Dose: 60 mg Documented by: Admin: 12/26/19 10:27 Dose: 60 mg Documented by: Admin: 12/25/19 21:06 Dose: 60 mg Documented by: Admin: 12/25/19 09:20 Dose: 60 mg Documented by: Admin: 12/24/19 20:45 Dose: 60 mg Documented by: QUENTIN Paroxetine HCl (Paxil) 20 mg PO DAILY [facility] Last Admin: 12/29/19 08:08 Dose: 20 mg Documented by: Admin: 12/28/19 08:24 Dose: 20 mg Documented by: Admin: 12/27/19 08:57 Dose: 20 mg Documented by: Admin: 12/26/19 10:23 Dose: 20 mg Documented by: Admin: 12/25/19 09:17 Dose: 20 mg Documented by: LILIANE Potassium Chloride (Kdur) 40 meq PO BIDCC [facility] Last Admin: 12/29/19 08:08 Dose: 40 meq Documented by: Admin: 12/28/19 17:29 Dose: 40 meq Documented by: Admin: 12/28/19 08:24 Dose: 40 meq Documented by: Admin: 12/27/19 18:00 Dose: 40 meq Documented by: Admin: 12/27/19 08:59 Dose: 40 meq Documented by: Admin: 12/26/19 17:50 Dose: 40 meq Documented by: Admin: 12/26/19 10:22 Dose: 40 meq Documented by: Admin: 12/25/19 17:31 Dose: 40 meq Documented by: LILIANE Vitamin B Complex (Vitamin B Complex) 1 cap PO DAILY [facility] Admin: 12/29/19 08:08 Dose: 1 cap Documented by: Admin: 12/28/19 08:24 Dose: 1 cap Documented by: Admin: 12/27/19 09:00 Dose: 1 cap Documented by: Admin: 12/26/19 10:24 Dose: 1 cap Documented by: Admin: 12/25/19 09:20 Dose: 1 cap Documented by: LILIANE Vitamin D (Vitamin D3) 1,000 unit PO DAILY [facility] Admin: 12/29/19 08:08 Dose: 1,000 unit Documented by: Admin: 12/28/19 08:24 Dose: 1,000 unit Documented by: Admin: 12/27/19 08:57 Dose: 1,000 unit Documented by: Admin: 12/26/19 10:23 Dose: 1,000 unit Documented by: Admin: 12/25/19 09:19 Dose: 1,000 unit Documented by: LILIANE Shift Summary 12/29/19 04:11 Shift Summary by Ara Engle Pt is A&Ox4. Pt had low grade temp of 99.3 at start of shift, but this has come down. Other VSS on RA. Up ad galdino to BSC. Patient's BMs at start of shift were brown. During the night they became more of dark red blood (small amount of blood also present in attends). Now appears more brown again. Tolerating regular diet. No N/V or dizziness. Redness to gluteal cleft and hemorrhoids present. IV to LFA w/NS @ 150 ml/hr. Getting Zosyn Q6H. Will update with verbal report. (Hx: Pt had a colonoscopy on 12/23 that found bleeding ulcers. On 12/25 pt was passing clots and had symptomatic hypotension w/drop in Hgb to 8.8 and pt received 2 units PRBCs on that day. Pt does have order to keep ahead 2 units PRBCs. Pt was re-blood banded on 12/25 so blood band might be expiring tonight, 12/28. Hemoglobin yesterday morning was 10.0). Initialized on 12/29/19 04:11 - END OF NOTE
--- NOTE | 2019-12-30 11:42 | Operative Note ---
DATE OF OPERATION: 12/24/2019 PREOPERATIVE DIAGNOSIS: Lower GI bleeding. POSTOPERATIVE DIAGNOSIS: Diffuse colonic ulceration, pancolonic with bleeding. PROCEDURE: Colonoscopy with biopsy. SURGEON: Ursula Crespo M.D. FINDINGS: Diffuse punctate ulcerations of colon, extending from rectum to cecum with skip areas of ulcers involving the full thickness of the mucosa, but not through the muscularis. DESCRIPTION OF PROCEDURE: Under general anesthesia, the patient was turned to the left lateral decubitus position. A timeout procedure was carried out as per protocol. She was noted to have enlarged external hemorrhoids with some fissures. Scope was introduced. The fissures and the hemorrhoids were contiguous with fissures in the anal canal and rectum. The scope was maneuvered to the cecum. The ulcerations extended to the cecum. They were more confluent in the transverse and descending colon. There were some, however, scattered in the cecum. There was no active bleeding noted in the cecum and ascending colon. There was some in the punctate ulcerations in the transverse colon. All of these ulcerations involved only the mucosa. There were some skip areas where there was totally normal mucosa and there was no major inflammation of the colon apart from the areas immediately surrounding the ulcers. In the distal transverse and descending colon, the ulcerations became more confluent. There was slight oozing from a couple of areas but no major bleeding. The sigmoid colon had significantly more, and as described above, they extended into the rectum and the anal canal. Copious irrigation was carried out. There was no bleeding from any particular area and no blood accumulated during the procedure. It was elected not to try to do any cautery since there was no major bleeding. Biopsies were taken from the descending and sigmoid colon for confirmation. The patient tolerated the procedure well. She was awakened, transferred to a bed, and taken to the postanesthetic care unit in satisfactory condition. LCS:kevan Job ID: [id number] Doc ID: [id number] Ursula Crespo M.D.
[2020-01-08 17:03] LABS: ASCA IgA ELISA <3.1 EU/mL (< 9.2); ASCA IgG ELISA <3.1 EU/mL (< 11.9); Anti-A4-Fla2 IgG ELISA >100.0 EU/mL (< 32.4); Anti-CBir1 IgG ELISA >100.0 EU/mL (< 35.4); Anti-FlaX IgG ELISA >100.0 ER/mL (< 36.0); Anti-OmpC IgA ELISA 19.7 EU/mL (< 11.3); CRP 3.2 mg/L (< 13.4); IBD pANCA IFA Pattern DETECTED (NOTDETECTED); NKX2-3 SNP (rs10883365) DETECTED (NO MUTATION); VCAM-1 0.38 ug/ml (< 0.75); VEGF 310 pg/ml (< 393)
== END 2019-12-29 16:05 | disposition home or self-care (01) | DRG 386 ==
LOC: ED 17:40 → MEDSUR 17:40
PROVIDERS: ADMIT Family Medicine Adult Medicine; ATTEND Family Medicine Adult Medicine

== ENCOUNTER 2019-12-30 05:18 | Observation (INO) ==
[2019-12-30] MEDS ORDERED: LACTATED RINGERS 1,000 ML IV ONE (05:36)
[2019-12-30 05:41] LABS: POC Blood Urea Nitrogen 9 mg/dl (8-23); POC CO2 21 mmol/L (22-30); POC Calcium, Ionized 1.15 mmol/L (1.16-1.32); POC Chloride 103 mmol/L (96-108); POC Creatinine 0.4 mg/dl (0.6-1.1); POC Glucose, Random 143 mg/dL (70-105); POC Potassium 4.1 mmol/L (3.3-5.1); POC Sodium 133 mmol/L (133-145)
[2019-12-30 06:27] LABS: Basophils # (Auto) 0.01 K/mcL (0.00-0.30); Basophils % (Auto) 0.1 % (0.0-2.0); Eosinophils # (Auto) 0 K/mcL (0.00-0.70); Eosinophils % (Auto) 0 % (0.0-7.0); Hematocrit 29.3 % (34.1-44.9); Hemoglobin 9.6 g/dL (11.2-15.7); Lymphocytes # (Auto) 1.02 K/mcL (1.50-4.80); Lymphocytes % (Auto) 7.1 % (15.5-49.0); Mean Cell Volume 90.7 fL (80.0-100.0); Mean Corpuscular HGB Conc 32.8 g/dL (31.0-36.0); Mean Platelet Volume 9.3 fL (7.4-10.4); Monocytes # (Auto) 0.55 K/mcL (0.10-0.90); Monocytes % (Auto) 3.8 % (1.0-12.0); Platelet Count 284 K/mcL (140-440); RBC 3.23 M/mcL (3.59-5.38); Red Cell Distribution Width 18.5 % (11.5-14.5); WBC 14.3 K/mcL (4.50-11.00)
--- NOTE | 2019-12-30 06:38 | Emergency Department Note ---
GI Bleed HPI - General Chief complaint: Rectal Bleed Stated complaint: rectal bleeding Time Seen by Provider: 12/30/19 05:40 Source: patient, family Mode of arrival: ambulatory Limitations: no limitations - History of Present Illness HPI Narrative: This patient comes in with some bright red rectal bleeding that she thought was heavy but does not appear to be at this time. She was discharged in the hospital yesterday after an 11-day admission for an inflammatory colon syndrome that involves a lot of diarrhea with some bleeding. She received steroids and mesalamine. She had colonoscopy which showed the inflammatory condition. She has no abdominal pain and no rectal pain. She does have prominent internal hemorrhoids. - Related Data Home Medications Medication Instructions Recorded Confirmed Aspirin [Adult Low Dose Aspirin EC] 81 mg PO DAILY 01/01/18 12/30/19 Cholecalciferol (Vitamin D3) 1,000 unit PO DAILY 01/01/18 12/30/19 [Vitamin D3] Multivit-Min/FA/Lycopen/Lutein 1 tab PO DAILY 01/01/18 12/30/19 [Centrum Silver Tablet] Vitamin B Complex [Super B-50 1 cap PO DAILY 01/01/18 12/30/19 Complex] True Calm 1 cap PO DAILY 05/04/18 12/30/19 Previous Rx's Medication Instructions Recorded hydrocortisone 2.5 % topical cream 1 applic TOPICAL TID PRN #30 g 11/18/19 paroxetine HCl 20 mg tablet 20 mg PO QDAY #30 tab 12/02/19 Mesalamine [Pentasa] 1,000 mg PO QID #100 cap 12/29/19 predniSONE [Prednisone] 20 mg PO BID #60 tab 12/29/19 Allergies Allergy/AdvReac Type Severity Reaction Status Date / Time hydrocodone AdvReac Mild Hallucinati Verified 12/30/19 05:22 ng hydromorphone AdvReac Mild Hallucinati Verified 12/30/19 05:22 ng oxycodone [Oxycodone] AdvReac Mild Hallucinati Verified 12/30/19 05:22 ng Review of Systems All systems ED: reviewed and negative except as stated. Past Medical History - Past Medical History PMF Narrative: Medical History (Last Reviewed 12/02/19 @ 11:06 by Ursula Crespo MD) Menopausal syndrome (Chronic) Hypertension, essential (Chronic) Hyperlipidemia (Chronic) Allergic rhinitis due to allergen (Chronic) Allergic rhinitis due to pollen (Chronic) Abdominal pain (Acute) History of flexible sigmoidoscopy (Acute) Past Surgical History (Last Reviewed 12/02/19 @ 11:06 by Ursula Crespo MD) History of colectomy (Acute) No pertinent past surgical history (Inactive) Family History (Last Reviewed 12/02/19 @ 11:06 by Ursula Crespo MD) Mother Osteoporosis Hyperlipidemia, Onset Age: 85 Father Acute myocardial infarction Essential hypertension Diabetes mellitus, Onset Age: 85 Parkinsons disease daughter Malignant neoplasm of breast - Social History smoking status: Never smoker Alcohol use: Reports: None Drug use: Reports: none Physical Exam Limitations: no limitations General appearance: alert Head: atraumatic Eye: Present: normal appearance ENT: Present: normal exam Neck: Present: normal inspection Chest: Present: normal inspection Respiratory: Present: normal lung sounds bilaterally Cardiovascular: Present: regular rate, normal rhythm, normal heart sounds Abdominal: Present: soft. Absent: distention, tenderness Rectal: Present: hemorrhoids, other (Very scant amount of bright red blood.) Neurological: Present: alert Psychiatric: Present: normal affect Skin: Present: warm, dry Course Vital Signs Temperature 97.5 F 12/30/19 05:19 Pulse Rate 77 12/30/19 05:19 Respiratory Rate 18 12/30/19 05:19 Blood Pressure 110/71 12/30/19 05:19 Pulse Oximetry (%) 96 12/30/19 05:19 Temperature 97.5 F 12/30/19 05:19 Pulse Rate 69 12/30/19 07:46 Respiratory Rate 18 12/30/19 05:19 Blood Pressure 103/65 12/30/19 07:46 Pulse Oximetry (%) 97 12/30/19 07:46 GI Bleed - [facility] Narrative Medical decision making narrative: This patient apparently did have a syncopal episode at home and continues to have some rectal bleeding bright red. I discussed case with Dr. Crespo and we will admit her to the hospital observation. - Lab Data Lab results reviewed: Yes I reviewed the patient's lab results. Result diagrams: 12/30/19 05:30 12/30/19 05:30 Lab Results 12/30/19 12/30/19 12/30/19 Range/Units 05:30 05:30 05:30 WBC 14.3 H (4.50-11.00) K/mcL RBC 3.23 L (3.59-5.38) M/mcL Hgb 9.6 L (11.2-15.7) g/dL Hct 29.3 L (34.1-44.9) % POC Hct 29.0 L (36.0-48.0) % MCV 90.7 (80.0-100.0) fL MCH 29.7 (26.0-34.0) pg MCHC 32.8 (31.0-36.0) g/dL RDW 18.5 H (11.5-14.5) % Plt Count 284 (140-440) K/mcL MPV 9.3 (7.4-10.4) fL Gran % 89.0 H (38.0-78.0) % Lymph % (Auto) 7.1 L (15.5-49.0) % Leon % (Auto) 3.8 (1.0-12.0) % Eos % (Auto) 0 (0.0-7.0) % Baso % (Auto) 0.1 (0.0-2.0) % Gran # 12.74 H (1.80-8.00) K/mcL Lymph # (Auto) 1.02 L (1.50-4.80) K/mcL Leon # (Auto) 0.55 (0.10-0.90) K/mcL Eos # (Auto) 0 (0.00-0.70) K/mcL Baso # (Auto) 0.01 (0.00-0.30) K/mcL POC Sodium 133 (133-145) mmol/L Sodium 135 (133-145) mmol/L POC Potassium 4.1 (3.3-5.1) mmol/L Potassium 4.2 (3.3-5.1) mmol/L POC Chloride 103 (96-108) mmol/L Chloride 103 (96-108) mmol/L Carbon Dioxide 19 L (22-30) mmol/L POC Total CO2 21 L (22-30) mmol/L Anion Gap 13.0 (8-16) POC BUN 9 (8-23) mg/dl BUN 10 (8-23) mg/dl Creatinine 0.5 L (0.6-1.1) mg/dl POC Creatinine 0.4 L (0.6-1.1) mg/dl GFR Calculation 98 Glucose 144 H (70-105) mg/dL POC Glucose 143 H (70-105) mg/dL Calcium 8.2 L (8.6-10.4) mg/dl POC WB Ioniz Calcium 1.15 L (1.16-1.32) mmol/L Total Bilirubin 0.3 (0.0-1.0) mg/dL AST 14 (0-37) U/l ALT 27 (0-40) U/l Alkaline Phosphatase 44 (39-117) U/L Total Protein 4.9 L (5.9-8.4) gm/dL Albumin 3.0 L (3.2-5.2) gm/dL Globulin 1.9 L (2.2-3.7) gm/dL Albumin/Globulin Ratio 1.6 (1.0-2.3) Disposition 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
[2019-12-30 06:40] LABS: ALT/SGPT 27 U/l (0-40); AST/SGOT 14 U/l (0-37); Albumin/Globulin Ratio 1.6 (1.0-2.3); Alkaline Phosphatase 44 U/L (39-117); Bilirubin,Total 0.3 mg/dL (0.0-1.0); Blood Urea Nitrogen 10 mg/dl (8-23); Calcium 8.2 mg/dl (8.6-10.4); Carbon Dioxide 19 mmol/L (22-30); Chloride 103 mmol/L (96-108); Globulin 1.9 gm/dL (2.2-3.7); Glomerular Filtration Rate 98; Glucose 144 mg/dL (70-105)
[2019-12-30] MEDS ORDERED: predniSONE 20 MG TABLET PO SCH (08:00)
[2019-12-30] MEDS ORDERED: ONDANSETRON 4 MG/2 ML VIAL IV PRN (08:07)
[2019-12-30] MEDS ORDERED: 0.9 % SODIUM CHLORIDE 250 ML IV SCH (08:45)
[2019-12-30] MEDS ORDERED: PARoxetine 20 MG TABLET PO SCH (09:00)
[2019-12-30] MEDS: MESALAMINE 500 MG CAPSULE PO SCH ×2 (12:19→12:58)
[2019-12-30] MEDS: LACTATED RINGERS 1,000 ML IV SCH ×2 (12:51→15:22)
--- NOTE | 2019-12-30 13:30 | General Surg History&Physical ---
History of Present Illness Patient information: Note initiated : 12/30/19 at 1:25 pm Service Date, if different from initiated Date: [] Patient: Jesusita Jeffers 69 y/o F admitted on 12/30/19 for Rectal Bleeding . Chief Complaint: [] HPI: Ms. Jeffers is a 69 year old F admitted for evaluation of recurrent rectal bleeding due to extensive ulcerative disease of the colon. Patient was discharged yesterday after an 11 day stay for rectal bleeding. She has a history of uncontrolled diarrhea, weakness, fatigue and weight loss. She has a two-month history of intermittent diarrhea with 10-12 bowel movements per day prior to coming to the hospital. She had fecal leukocytes checked which were minimal she also had C. difficile PCR which was negative. Stool for pathogenic bacteria was also negative. CT scan showed inflammation of the region of her previous sigmoid colon resection with some mucosal changes. White count was normal as was hemoglobin and hematocrit. Her abdominal exam was benign. She did have some enlarged external hemorrhoids with fissure. Patient was admitted started on Solu-Medrol every 6 hours and cover with Zosyn pending cultures. All of her cultures returned negative including Covan 19 PCR. She started having bloody bowel movements are one December. On to December colonoscopy was done and she was noted to have diffuse pancolonic punctate ulcerations with normal areas. Pathology showed acute and chronic mucosal inflammation with ulceration but without crypt abscesses or pseudopolyps. Mesalamine was added to her treatment regimen. Her hemoglobin drifted down to 7 cm she was transfused 2 units of packed red cells. On the day of discharge, she had a small amount of bleeding but her hemoglobin was stable at 9.6 and her bowel movements were brown with specks of blood. She was discharged home on oral medicines. Last evening or early this morning when she got up to have a bowel movement she had a syncopal episode and was transferred back to the ER. She is admitted to observation and she has had 3 bowel movements since admission. Her hemoglobin has drifted down to 8.6. Patient is clinically stable otherwise though she complains of dizziness. Family has decided that they wish to get a second opinion in a tertiary center and I think this is quite reasonable since we do not have good GI available to assist in this facility or at our closest hospital. Patient is transferred in stable condition. Review of Systems All systems PM: reviewed and no additional remarkable complaints except as stated (negative except as noted below and in HPI) - Constitutional malaise, weakness, weight loss - Cardiovascular lightheadedness, syncope - Gastrointestinal bloating, change in bowel habits, hematochezia, loose stools Past History Past medical history: History of diverticulitis status post sigmoid resection Hypertension Past surgical history: Segmental colectomy for diverticulitis 2017 Past family history: Coronary artery disease Hypertension Diabetes mellitus Parkinson's disease Breast cancer Past social history: Never smoker. Medications and Allergies Home Medications Medication Instructions Recorded Confirmed Type Aspirin [Adult Low Dose Aspirin EC] 81 mg PO DAILY 01/01/18 12/30/19 History Cholecalciferol (Vitamin D3) 1,000 unit PO DAILY 01/01/18 12/30/19 History [Vitamin D3] Multivit-Min/FA/Lycopen/Lutein 1 tab PO DAILY 01/01/18 12/30/19 History [Centrum Silver Tablet] Vitamin B Complex [Super B-50 1 cap PO DAILY 01/01/18 12/30/19 History Complex] True Calm 1 cap PO DAILY 05/04/18 12/30/19 History hydrocortisone 2.5 % topical cream 1 applic TOPICAL TID PRN #30 g 11/18/19 12/30/19 Rx paroxetine HCl 20 mg tablet 20 mg PO QDAY #30 tab 12/02/19 12/30/19 Rx Mesalamine [Pentasa] 1,000 mg PO QID #100 cap 12/29/19 12/30/19 Rx predniSONE [Prednisone] 20 mg PO BID #60 tab 12/29/19 12/30/19 Rx Allergies Allergy/AdvReac Type Severity Reaction Status Date / Time hydrocodone AdvReac Mild Hallucinati Verified 12/30/19 05:22 ng hydromorphone AdvReac Mild Hallucinati Verified 12/30/19 05:22 ng oxycodone [Oxycodone] AdvReac Mild Hallucinati Verified 12/30/19 05:22 ng Exam Temp Pulse Resp BP Pulse Ox 97.5 F 69 18 103/65 97 12/30/19 08:33 12/30/19 08:33 12/30/19 08:33 12/30/19 08:33 12/30/19 08:33 - General physical appearance well developed, well nourished, no distress - Eyes PERRL, normal ocular movement - ENT normal pinna, normal nares, normal mucosa, no hearing loss, no congestion - Head Head exam IM: Present: atraumatic, normocephalic - Neck no masses, no bruits, trachea midline, no lymphadenopathy, no venous distension - Cardiovascular Cardiovascular exam IM: Present: normal rate and rhythm - Respiratory normal expansion, normal respiratory effort, clear to percussion, clear to auscultation - Abdomen Abdomen: Present: soft, non tender, bowel sounds, distended ( Nondistended) Hernia: Present: none - Genitourinary Present: normal external genitalia - Rectum Rectum: Present: normal sphincter tone, no masses, no bleeding, fissures, other (external hemorrhoids with fissures.) Hemorrhoids: Present: moderate - Integumentary Present: no rash, no growths, no abnormal pigmentation - Neurologic Present: normal coordination, normal sensation - Musculoskeletal Present: normal gait, normal posture - Psychiatric Present: oriented to time, oriented to person, oriented to place, speech is normal, memory intact Assessment and Plan (1) Acute on chronic colitis Patient is admitted and we will make arrangements to have her transferred to a tertiary center. I discussed this with her and she is willing to proceed. Status: Acute (2) History of diverticulitis Status: Acute Comment: Possible irritable bowel syndrome (3) Hypertension, essential Status: Chronic
== END 2019-12-30 15:51 | disposition other institution (70) ==
LOC: ED 05:18 → MEDSUR 05:18
PROVIDERS: ADMIT Family Medicine Adult Medicine; ATTEND Family Medicine Adult Medicine

== ENCOUNTER 2023-05-26 04:58 | Inpatient (IN) ==
[2023-05-16 18:55] LABS: Basophils # (Auto) 0.03 K/mcL (0.00-0.30); Basophils % (Auto) 0.5 % (0.0-2.0); Eosinophils # (Auto) 0.13 K/mcL (0.00-0.70); Hematocrit 46.1 % (34.1-44.9); Hemoglobin 14.6 g/dL (11.2-15.7); Lymphocytes # (Auto) 1.46 K/mcL (1.50-4.80); Lymphocytes % (Auto) 22.7 % (15.5-49.0); Mean Cell Volume 86.2 fL (80.0-100.0); Mean Corpuscular HGB Conc 31.7 g/dL (31.0-36.0); Monocytes # (Auto) 0.62 K/mcL (0.10-0.90); Monocytes % (Auto) 9.6 % (1.0-12.0); Neutrophils % (Auto) 64.9 % (38.0-78.0); Platelet Count 299 K/mcL (140-440); RBC 5.35 M/mcL (3.59-5.38); Red Cell Distribution Width 14.8 % (11.5-14.5); WBC 6.4 K/mcL (4.5-11.0)
[2023-05-16 19:08] LABS: Partial Thromboplastin Time 28.9 sec (20.0-37.0); Prothrombin Time 13.1 sec (11.9-14.5)
[2023-05-16 19:18] LABS: ALT/SGPT 12 U/L (<40); AST/SGOT 16 U/L (<32); Albumin 3.9 gm/dL (3.2-5.2); Albumin/Globulin Ratio 1.1 (1.0-2.3); Alkaline Phosphatase 69 U/L (39-117); Bilirubin,Total 0.3 mg/dL (0.1-1.0); Blood Urea Nitrogen 8 mg/dL (8-23); Calcium 9.6 mg/dL (8.6-10.4); Carbon Dioxide 25 mmol/L (22-30); Chloride 105 mmol/L (96-108); Globulin 3.5 gm/dL (2.2-3.7); Glomerular Filtration Rate 90; Glucose 82 mg/dL (70-105)
[2023-05-26] MEDS ORDERED: IPRATROPIUM/ALBUTEROL 3 ML AMPUL.NEB NEB PRN ×3 (05:00→10:22)
[2023-05-26] MEDS ORDERED: SCOPOLAMINE 1 PATCH PATCH TOPICAL PRN (05:00)
[2023-05-26] MEDS ORDERED: CEFEPIME 2 GM VIAL IV SCH (06:00)
[2023-05-26] MEDS ORDERED: metroNIDAZOLE 500 MG/100 ML BAG IV SCH (06:00)
[2023-05-26] MEDS ORDERED: PROPOFOL 200 MG/20 ML VIAL IV ONE (07:13)
[2023-05-26] MEDS ORDERED: ROCURONIUM 10 MG/ML ML IV ONE (07:13)
[2023-05-26] MEDS ORDERED: ONDANSETRON 4 MG/2 ML VIAL ONE (07:13)
[2023-05-26] MEDS ORDERED: fentaNYL 100 MCG/2 ML VIAL IV ONE (07:14)
[2023-05-26] MEDS ORDERED: PHENYLephrine 1 MG/10 ML SYRINGE (ANEST) ONE (07:59)
[2023-05-26] MEDS ORDERED: SUGAMMADEX SODIUM 200 MG/2 ML VIAL IV ONE (08:17)
[2023-05-26] MEDS ORDERED: HYDROmorphone 1 MG/ML SYRINGE ONE (08:17)
[2023-05-26] MEDS ORDERED: ONDANSETRON 4 MG/2 ML VIAL IV PRN ×2 (08:23→09:52)
[2023-05-26] MEDS ORDERED: FLUMAZENIL 0.1 MG/ML ML IV PRN (08:23)
[2023-05-26] MEDS ORDERED: NALOXONE HCL 0.4 MG/ML VIAL IV PRN (08:23)
[2023-05-26] MEDS ORDERED: fentaNYL 100 MCG/2 ML VIAL IV PRN (08:23)
[2023-05-26] MEDS ORDERED: HYDROmorphone 0.5 MG/0.5 ML SYRINGE IV PRN (08:23)
[2023-05-26] MEDS ORDERED: PROMETHAZINE 25 MG/ML VIAL IV PRN ×2 (08:23→15:31)
[2023-05-26] MEDS ORDERED: LACTATED RINGERS 1,000 ML IV SCH (08:30)
[2023-05-26] MEDS ORDERED: HYDROmorphone 1 MG/ML SYRINGE IV PRN (09:52)
[2023-05-26] MEDS ORDERED: GENTAMICIN SULFATE 800 MG/20 ML VIAL IR ONE (10:09)
[2023-05-26] MEDS ORDERED: VANCOMYCIN 1 GM VIAL TOPICAL SCH (10:15)
[2023-05-26] MEDS ORDERED: LABETALOL HCL 20 MG/4 ML VIAL IV ONE (10:22)
[2023-05-26] MEDS: 0.9 % SODIUM CHLORIDE 1,000 ML IV SCH ×2 (11:18→17:00)
[2023-05-26] MEDS: METOCLOPRAMIDE 10 MG/2 ML VIAL IV SCH ×3 (11:43→23:04)
[2023-05-26] MEDS: ACETAMINOPHEN 1,000 MG/100 ML BAG IV SCH ×3 (11:43→23:04)
[2023-05-26] MEDS: CEFEPIME 2 GM VIAL IV SCH ×2 (13:53→21:01)
[2023-05-26] MEDS: 0.9 % SODIUM CHLORIDE 10 ML SYRINGE IV SCH ×2 (13:54→21:01)
[2023-05-26] MEDS: fentaNYL 100 MCG/2 ML VIAL IV PRN (15:42)
[2023-05-26] MEDS: SENNOSIDES 1 TABLET PO SCH (21:01)
[2023-05-26] MEDS: DOCUSATE SODIUM 100 MG CAPSULE PO SCH (21:01)
[2023-05-27] MEDS: 0.9 % SODIUM CHLORIDE 1,000 ML IV SCH ×4 (00:34→23:45)
[2023-05-27] MEDS: 0.9 % SODIUM CHLORIDE 10 ML SYRINGE IV SCH ×3 (05:06→20:05)
[2023-05-27] MEDS: ACETAMINOPHEN 1,000 MG/100 ML BAG IV SCH ×4 (05:06→23:45)
[2023-05-27] MEDS: METOCLOPRAMIDE 10 MG/2 ML VIAL IV SCH ×4 (05:06→23:45)
[2023-05-27] MEDS: PANTOPRAZOLE 40 MG TABLET PO SCH (07:12)
[2023-05-27] MEDS: DOCUSATE SODIUM 100 MG CAPSULE PO SCH ×2 (07:13→20:05)
[2023-05-27 07:25] LABS: Basophils # (Auto) 0.02 K/mcL (0.00-0.30); Basophils % (Auto) 0.2 % (0.0-2.0); Eosinophils # (Auto) 0.06 K/mcL (0.00-0.70); Eosinophils % (Auto) 0.7 % (0.0-7.0); Hematocrit 39.7 % (34.1-44.9); Hemoglobin 12.4 g/dL (11.2-15.7); Lymphocytes # (Auto) 0.81 K/mcL (1.50-4.80); Lymphocytes % (Auto) 9.8 % (15.5-49.0); Mean Cell Volume 86.5 fL (80.0-100.0); Mean Corpuscular HGB Conc 31.2 g/dL (31.0-36.0); Mean Platelet Volume 9.5 fL (8.8-12.5); Monocytes # (Auto) 0.72 K/mcL (0.10-0.90); Monocytes % (Auto) 8.7 % (1.0-12.0); Neutrophils % (Auto) 80.1 % (38.0-78.0); Platelet Count 251 K/mcL (140-440); RBC 4.59 M/mcL (3.59-5.38); WBC 8.3 K/mcL (4.5-11.0)
[2023-05-27 07:54] LABS: ALT/SGPT 12 U/L (<40); AST/SGOT 15 U/L (<32); Albumin 3.2 gm/dL (3.2-5.2); Albumin/Globulin Ratio 1.2 (1.0-2.3); Alkaline Phosphatase 52 U/L (39-117); Bilirubin,Direct < 0.2 mg/dL (0-0.3); Bilirubin,Total 0.5 mg/dL (0.1-1.0); Blood Urea Nitrogen 5 mg/dL (8-23); Calcium 8.6 mg/dL (8.6-10.4); Carbon Dioxide 23 mmol/L (22-30); Chloride 106 mmol/L (96-108); Globulin 2.7 gm/dL (2.2-3.7); Glomerular Filtration Rate 95; Glucose 109 mg/dL (70-105); Lactate Dehydrogenase 138 U/L (135-225); Phosphorous 3.2 mg/dL (2.5-4.5); Triglycerides 95 mg/dL (<150); Uric Acid 3.4 mg/dL (2.5-8.0)
[2023-05-27 09:04] LABS: Eosinophils % (Manual) 1 % (0-7); Lymphocytes % 14 % (15-49); Monocytes % (Manual) 5 % (1-12); Platelet Estimate NORMAL (Normal); RBC Morphology NORMAL (Normal); Segmented Neutrophils % 80 % (38-78)
[2023-05-27] MEDS: fentaNYL 100 MCG/2 ML VIAL IV PRN ×2 (11:05→17:24)
[2023-05-27] MEDS ORDERED: METOPROLOL TARTRATE 5 MG/5 ML VIAL IV ONE (17:56)
[2023-05-27] MEDS: METOPROLOL TARTRATE 5 MG/5 ML VIAL IV PRN ×2 (17:58→23:53)
[2023-05-27] MEDS: SENNOSIDES 1 TABLET PO SCH (20:05)
[2023-05-28] MEDS: 0.9 % SODIUM CHLORIDE 1,000 ML IV SCH ×4 (01:21→19:53)
[2023-05-28] MEDS: METOCLOPRAMIDE 10 MG/2 ML VIAL IV SCH ×3 (05:14→16:52)
[2023-05-28] MEDS: ACETAMINOPHEN 1,000 MG/100 ML BAG IV SCH ×3 (05:14→16:52)
[2023-05-28] MEDS: 0.9 % SODIUM CHLORIDE 10 ML SYRINGE IV SCH ×2 (05:14→12:31)
[2023-05-28] MEDS: PANTOPRAZOLE 40 MG TABLET PO SCH (06:58)
[2023-05-28] MEDS: DOCUSATE SODIUM 100 MG CAPSULE PO SCH ×2 (08:28→21:07)
[2023-05-28] MEDS: fentaNYL 100 MCG/2 ML VIAL IV PRN (17:11)
[2023-05-28] MEDS: SENNOSIDES 1 TABLET PO SCH (21:07)
[2023-05-29] MEDS: ACETAMINOPHEN 1,000 MG/100 ML BAG IV SCH ×5 (00:44→23:39)
[2023-05-29] MEDS: METOCLOPRAMIDE 10 MG/2 ML VIAL IV SCH ×5 (00:45→23:46)
[2023-05-29] MEDS: 0.9 % SODIUM CHLORIDE 10 ML SYRINGE IV SCH ×4 (00:52→23:39)
[2023-05-29] MEDS: METOPROLOL TARTRATE 5 MG/5 ML VIAL IV PRN ×4 (01:00→23:38)
[2023-05-29] MEDS: 0.9 % SODIUM CHLORIDE 1,000 ML IV SCH ×4 (02:05→12:43)
[2023-05-29] MEDS: PANTOPRAZOLE 40 MG TABLET PO SCH (07:10)
[2023-05-29] MEDS: DOCUSATE SODIUM 100 MG CAPSULE PO SCH ×3 (09:19→21:47)
[2023-05-29] MEDS: SENNOSIDES 1 TABLET PO SCH (21:47)
[2023-05-30] MEDS: ACETAMINOPHEN 1,000 MG/100 ML BAG IV SCH ×2 (05:23→11:53)
[2023-05-30] MEDS: 0.9 % SODIUM CHLORIDE 10 ML SYRINGE IV SCH ×3 (05:23→18:20)
[2023-05-30] MEDS: METOCLOPRAMIDE 10 MG/2 ML VIAL IV SCH ×2 (05:23→11:53)
[2023-05-30] MEDS: METOPROLOL TARTRATE 5 MG/5 ML VIAL IV PRN (05:30)
[2023-05-30 07:10] LABS: Basophils # (Auto) 0.03 K/mcL (0.00-0.30); Basophils % (Auto) 0.4 % (0.0-2.0); Eosinophils # (Auto) 0.24 K/mcL (0.00-0.70); Eosinophils % (Auto) 3.6 % (0.0-7.0); Hematocrit 41.2 % (34.1-44.9); Lymphocytes # (Auto) 1.02 K/mcL (1.50-4.80); Lymphocytes % (Auto) 15.2 % (15.5-49.0); Mean Cell Volume 84.9 fL (80.0-100.0); Mean Corpuscular HGB Conc 31.6 g/dL (31.0-36.0); Mean Platelet Volume 9.4 fL (8.8-12.5); Monocytes # (Auto) 0.55 K/mcL (0.10-0.90); Monocytes % (Auto) 8.2 % (1.0-12.0); Neutrophils % (Auto) 72.2 % (38.0-78.0); Platelet Count 305 K/mcL (140-440); RBC 4.85 M/mcL (3.59-5.38); Red Cell Distribution Width 15.1 % (11.5-14.5); WBC 6.7 K/mcL (4.5-11.0)
[2023-05-30 07:32] LABS: ALT/SGPT 16 U/L (<40); AST/SGOT 18 U/L (<32); Alkaline Phosphatase 68 U/L (39-117); Bilirubin,Direct < 0.2 mg/dL (0-0.3); Bilirubin,Total 0.4 mg/dL (0.1-1.0); Blood Urea Nitrogen 6 mg/dL (8-23); Calcium 8.6 mg/dL (8.6-10.4); Carbon Dioxide 24 mmol/L (22-30); Chloride 105 mmol/L (96-108); Glomerular Filtration Rate 103; Glucose 106 mg/dL (70-105); Lactate Dehydrogenase 153 U/L (135-225); Phosphorous 2.6 mg/dL (2.5-4.5); Triglycerides 117 mg/dL (<150); Uric Acid 2.6 mg/dL (2.5-8.0)
[2023-05-30] MEDS: PANTOPRAZOLE 40 MG TABLET PO SCH (07:57)
[2023-05-30] MEDS: DOCUSATE SODIUM 100 MG CAPSULE PO SCH (08:48)
[2023-05-30] MEDS ORDERED: POLYETHYLENE GLYCOL 3350 17 GM PACKET PO SCH (09:00)
== END 2023-05-30 16:05 | disposition home or self-care (01) | DRG 355 ==
LOC: MEDSUR 04:58 → EDSTATUS 07:30
PROVIDERS: ADMIT Family Medicine Adult Medicine; ATTEND Family Medicine Adult Medicine